=== PATIENT | male | born 1945 | race Caucasian/White ===

== ENCOUNTER 2018-02-25 11:18 | Inpatient (IN) ==
[2018-02-25 12:17] LABS: Basophils # 0.1 10*3/uL (0.0-0.2); Basophils % 0.6 % (0.0-0.8); Eosinophils # 0.3 10*3/uL (0.0-0.87); Eosinophils % 3.4 % (0.00-10.9); Hematocrit 38.1 VOL% (42.0-52.0); Hemoglobin 12.1 GM/DL (14.0-18.0); Immature Granulocytes % 0.5 %; Immature Granulocytes Absolute 0.05 #; Lymphocytes # 2.2 10*3/uL (1.4-4.0); Lymphocytes % 22.9 % (21.2-54.2); Mean Corpuscular HGB Conc 31.8 GM/DL (32-36); Mean Corpuscular Hemoglobin 30 PG (27-34); Mean Corpuscular Volume 95.7 FL (87-102); Mean Platelet Volume 9.8 FL (9.6-12.0); Monocytes # 1.1 10*3/uL (0.11-0.8); Monocytes % 11.1 % (1.7-12.7); Neutrophils # 5.9 10*3/uL (1.4-7.4); Neutrophils % 61.5 % (38.7-73.9); Platelet Count 312 T/CUMM (130-400); Red Blood Count 3.98 MC/CUMM (3.8-5.5); Red Cell Distribution Width 15.9 % (9.3-17.3); White Blood Count 9.6 T/CUMM (4-12)
[2018-02-25 12:36] LABS: Calcium 8.6 MG/DL (8.5-10.1); Potassium 3.8 MMOL/L (3.5-5.1)
[2018-02-25] MEDS ORDERED: MIDAZOLAM 2 MG/2 ML VIAL IV ONE (15:11)
[2018-02-25] MEDS ORDERED: ONDANSETRON 4 MG/2 ML VIAL IV ONE (15:11)
[2018-02-25] MEDS ORDERED: HEPARIN 5,000 UNIT/1 ML VIAL IV ONE (15:11)
[2018-02-25] MEDS ORDERED: fentaNYL 100 MCG/2 ML VIAL IV ONE (15:11)
[2018-02-25] MEDS ORDERED: ceFAZolin 1,000 MG in SYRINGE 1 EACH IV ONE (15:11)
[2018-02-25] MEDS ORDERED: DIAZEPAM 5 MG TABLET PO ONE (15:11)
[2018-02-25] MEDS ORDERED: SODIUM CHLORIDE 0.45% 1,000 ML IV SCH (15:30)
[2018-02-25] MEDS ORDERED: PROMETHAZINE 25 MG TABLET PO PRN (15:39)
[2018-02-25] MEDS ORDERED: DOCUSATE SODIUM 100 MG CAPSULE PO PRN (15:39)
[2018-02-25] MEDS ORDERED: MAGNESIUM SULF RIDER 4 GM in PREMIX 1 EACH IV PRN (15:39)
[2018-02-25] MEDS ORDERED: MAGNESIUM SULF RIDER 2 GM in PREMIX 1 EACH IV PRN (15:39)
[2018-02-25] MEDS ORDERED: ONDANSETRON 4 MG/2 ML VIAL IV PRN (15:39)
[2018-02-25] MEDS ORDERED: diphenhydrAMINE CAP 25 MG CAPSULE PO PRN (15:39)
[2018-02-25] MEDS ORDERED: ACETAMINOPHEN 325 MG TABLET PO PRN (15:39)
[2018-02-25] MEDS ORDERED: LACTULOSE 20 GM/30 ML UDCUP PO PRN (15:39)
[2018-02-25] MEDS ORDERED: BISACODYL 5 MG TABLET PO PRN (15:39)
[2018-02-25] MEDS ORDERED: guaiFENesin/DM ER 600-30 MG TABLET PO PRN (15:39)
[2018-02-25] MEDS ORDERED: HEPARIN 5,000 UNIT/1 ML VIAL ONE (15:46)
[2018-02-25] MEDS ORDERED: fentaNYL 100 MCG/2 ML VIAL ONE (15:46)
[2018-02-25] MEDS ORDERED: MIDAZOLAM 2 MG/2 ML VIAL ONE (15:46)
[2018-02-25] MEDS ORDERED: HEPARIN DRIP 25,000 UNITS/500 ML PREMIX IV SCH ×2 (16:00→17:30)
[2018-02-25] MEDS ORDERED: ALTEPLASE 12 MG in SODIUM CHLORIDE 0.9% 240 ML IV SCH (16:00)
[2018-02-25] MEDS: INSULIN REGULAR 100 UNIT/ML SUBCUT SCH ×2 (17:42→20:27)
[2018-02-25] MEDS: INSULIN GLARGINE 100 UNIT/ML SUBCUT SCH (17:43)
[2018-02-25] MEDS: SODIUM CHLORIDE 0.9% 1,000 ML IV SCH (18:53)
[2018-02-25 19:59] LABS: INR 1.1; PT Patient Result 11.5 SECS; Partial Thromboplastin Time 37.3 SECS (0-40)
[2018-02-25 20:14] LABS: Apearance,Urine CLEAR (Clear); Bacteria,Urine Occasional /HPF (Few); Bilirubin,Urine Negative (Negative); Blood, Urine Negative (Negative); Glucose,Urine (UA) Negative (Negative); Hyaline Casts,Urine 35 /LPF (0-3); Ketones,Urine Negative (Negative); Nitrite,Urine Negative (Negative); Protein,Urine Negative; RBC,Urine <1 /HPF (0-4); Urine Color Yellow (Yellow); Urine Specific Gravity 1.012 (1.001-1.035); Urine Urobilinogen < 2.0 EU/DL (0.2-1.0); WBC,Urine 1 /HPF (0-6)
[2018-02-25] MEDS: CARVEDILOL 3.125 MG TABLET PO SCH (20:26)
[2018-02-25] MEDS: ATORVASTATIN 40 MG TABLET PO SCH (20:26)
[2018-02-25] MEDS: GABAPENTIN 100 MG CAPSULE PO SCH (20:26)
[2018-02-25] MEDS: DOCUSATE/SENNA 50-8.6 MG TABLET PO SCH (20:26)
[2018-02-25] MEDS: SODIUM CHLORIDE/POTASSIUM CHLORIDE TABLET PO SCH (20:26)
[2018-02-25] MEDS: FAMOTIDINE 20 MG TABLET PO SCH (20:27)
[2018-02-26 04:32] LABS: Basophils # 0.1 10*3/uL (0.0-0.2); Basophils % 0.6 % (0.0-0.8); Eosinophils # 0.4 10*3/uL (0.0-0.87); Eosinophils % 3.6 % (0.00-10.9); Hematocrit 39.8 VOL% (42.0-52.0); Hemoglobin 12.3 GM/DL (14.0-18.0); Immature Granulocytes % 0.3 %; Immature Granulocytes Absolute 0.03 #; Lymphocytes % 20.9 % (21.2-54.2); Mean Corpuscular HGB Conc 30.9 GM/DL (32-36); Mean Corpuscular Hemoglobin 30 PG (27-34); Mean Corpuscular Volume 95.4 FL (87-102); Mean Platelet Volume 10.1 FL (9.6-12.0); Monocytes # 1.1 10*3/uL (0.11-0.8); Monocytes % 11.1 % (1.7-12.7); Neutrophils # 6.1 10*3/uL (1.4-7.4); Neutrophils % 63.5 % (38.7-73.9); Platelet Count 311 T/CUMM (130-400); Red Blood Count 4.17 MC/CUMM (3.8-5.5); White Blood Count 9.6 T/CUMM (4-12)
[2018-02-26 05:01] LABS: Calcium 8.4 MG/DL (8.5-10.1); Osmolality,Calculated 284.1 MOS/KG (273-304); Potassium 3.5 MMOL/L (3.5-5.1)
[2018-02-26] MEDS: POTASSIUM CHLORIDE 20 MEQ TABLET PO PRN ×2 (05:34→08:21)
[2018-02-26] MEDS: LEVOTHYROXINE 175 MCG TABLET PO SCH (05:34)
[2018-02-26] MEDS ORDERED: ISOSORBIDE MONONITRATE 30 MG TABLET PO SCH (08:00)
[2018-02-26] MEDS: sitaGLIPtin 100 MG TABLET PO SCH (08:07)
[2018-02-26] MEDS: INSULIN REGULAR 100 UNIT/ML SUBCUT SCH ×4 (08:07→20:17)
[2018-02-26] MEDS: SODIUM CHLORIDE 0.9% 1,000 ML IV SCH ×2 (08:08→22:21)
[2018-02-26] MEDS: CARVEDILOL 3.125 MG TABLET PO SCH ×2 (08:19→18:10)
[2018-02-26] MEDS: ASPIRIN EC 81 MG TABLET PO SCH (08:19)
[2018-02-26] MEDS: TAMSULOSIN 0.4 MG CAPSULE PO SCH (08:19)
[2018-02-26] MEDS: ASCORBIC ACID 500 MG TABLET PO SCH (08:20)
[2018-02-26] MEDS: DOCUSATE/SENNA 50-8.6 MG TABLET PO SCH ×2 (08:20→20:16)
[2018-02-26] MEDS: SODIUM CHLORIDE/POTASSIUM CHLORIDE TABLET PO SCH ×2 (08:20→20:16)
[2018-02-26] MEDS: FAMOTIDINE 20 MG TABLET PO SCH ×2 (08:20→20:16)
[2018-02-26] MEDS: GABAPENTIN 100 MG CAPSULE PO SCH ×2 (08:20→20:17)
[2018-02-26] MEDS: CLOPIDOGREL 75 MG TABLET PO SCH (08:20)
[2018-02-26] MEDS: PANTOPRAZOLE 40 MG TABLET PO SCH (08:20)
[2018-02-26] MEDS ORDERED: ALTEPLASE 6 MG in SODIUM CHLORIDE 0.9% 120 ML IV SCH (08:30)
[2018-02-26] MEDS ORDERED: SKIN HEALING OINT (AQUAPHOR) 50 GM TUBE TOP PRN (10:27)
[2018-02-26] MEDS ORDERED: DEXTROSE 50% 25 GM/50 ML VIAL IV PRN (13:48)
[2018-02-26] MEDS: HEPARIN DRIP 25,000 UNITS/500 ML PREMIX IV SCH (14:39)
[2018-02-26] MEDS: ATORVASTATIN 40 MG TABLET PO SCH (20:16)
[2018-02-26] MEDS: ZALEPLON 5 MG CAPSULE PO PRN (20:16)
[2018-02-26] MEDS: INSULIN GLARGINE 100 UNIT/ML SUBCUT SCH (20:17)
[2018-02-27] MEDS: LEVOTHYROXINE 175 MCG TABLET PO SCH (06:09)
[2018-02-27] MEDS: INSULIN REGULAR 100 UNIT/ML SUBCUT SCH ×4 (07:52→21:05)
[2018-02-27] MEDS: POLYETHYLENE GLYCOL POWDER 17 GM PACK PO SCH (08:35)
[2018-02-27] MEDS: ASPIRIN EC 81 MG TABLET PO SCH (08:35)
[2018-02-27] MEDS: CARVEDILOL 3.125 MG TABLET PO SCH ×2 (08:35→17:08)
[2018-02-27] MEDS: sitaGLIPtin 100 MG TABLET PO SCH (08:35)
[2018-02-27] MEDS: TAMSULOSIN 0.4 MG CAPSULE PO SCH (08:35)
[2018-02-27] MEDS: CLOPIDOGREL 75 MG TABLET PO SCH (08:36)
[2018-02-27] MEDS: PANTOPRAZOLE 40 MG TABLET PO SCH (08:36)
[2018-02-27] MEDS: ASCORBIC ACID 500 MG TABLET PO SCH (08:36)
[2018-02-27] MEDS: SODIUM CHLORIDE/POTASSIUM CHLORIDE TABLET PO SCH ×2 (08:36→21:06)
[2018-02-27] MEDS: DOCUSATE/SENNA 50-8.6 MG TABLET PO SCH ×2 (08:36→21:06)
[2018-02-27] MEDS: GABAPENTIN 100 MG CAPSULE PO SCH ×2 (08:36→21:06)
[2018-02-27] MEDS: FAMOTIDINE 20 MG TABLET PO SCH ×2 (08:36→21:06)
[2018-02-27 08:59] LABS: Basophils # 0.1 10*3/uL (0.0-0.2); Basophils % 0.6 % (0.0-0.8); Eosinophils # 0.2 10*3/uL (0.0-0.87); Eosinophils % 1.7 % (0.00-10.9); Hematocrit 40.9 VOL% (42.0-52.0); Hemoglobin 12.7 GM/DL (14.0-18.0); Immature Granulocytes % 0.4 %; Immature Granulocytes Absolute 0.04 #; Lymphocytes # 2.2 10*3/uL (1.4-4.0); Lymphocytes % 20.9 % (21.2-54.2); Mean Corpuscular HGB Conc 31.1 GM/DL (32-36); Mean Corpuscular Hemoglobin 30 PG (27-34); Mean Corpuscular Volume 97.4 FL (87-102); Mean Platelet Volume 9.8 FL (9.6-12.0); Monocytes # 1.1 10*3/uL (0.11-0.8); Monocytes % 10.8 % (1.7-12.7); Neutrophils # 6.8 10*3/uL (1.4-7.4); Neutrophils % 65.6 % (38.7-73.9); Platelet Count 309 T/CUMM (130-400); White Blood Count 10.3 T/CUMM (4-12)
[2018-02-27] MEDS: SODIUM CHLORIDE 0.9% 1,000 ML IV SCH (12:37)
[2018-02-27] MEDS: HEPARIN DRIP 25,000 UNITS/500 ML PREMIX IV SCH (14:39)
[2018-02-27] MEDS: ATORVASTATIN 40 MG TABLET PO SCH (21:06)
[2018-02-27] MEDS: INSULIN GLARGINE 100 UNIT/ML SUBCUT SCH (21:06)
[2018-02-28] MEDS: SODIUM CHLORIDE 0.9% 1,000 ML IV SCH (00:49)
[2018-02-28] MEDS: ZALEPLON 5 MG CAPSULE PO PRN (00:50)
[2018-02-28 02:56] LABS: Basophils # 0.1 10*3/uL (0.0-0.2); Basophils % 0.7 % (0.0-0.8); Eosinophils # 0.2 10*3/uL (0.0-0.87); Eosinophils % 1.3 % (0.00-10.9); Hematocrit 36.8 VOL% (42.0-52.0); Hemoglobin 11.8 GM/DL (14.0-18.0); Immature Granulocytes % 0.4 %; Immature Granulocytes Absolute 0.05 #; Lymphocytes # 2.6 10*3/uL (1.4-4.0); Lymphocytes % 21.4 % (21.2-54.2); Mean Corpuscular HGB Conc 32.1 GM/DL (32-36); Mean Corpuscular Hemoglobin 31 PG (27-34); Mean Corpuscular Volume 95.3 FL (87-102); Mean Platelet Volume 9.9 FL (9.6-12.0); Monocytes # 1.2 10*3/uL (0.11-0.8); Monocytes % 10.1 % (1.7-12.7); Neutrophils # 8.1 10*3/uL (1.4-7.4); Neutrophils % 66.1 % (38.7-73.9); Platelet Count 278 T/CUMM (130-400); Red Blood Count 3.86 MC/CUMM (3.8-5.5); White Blood Count 12.2 T/CUMM (4-12)
[2018-02-28 03:13] LABS: Calcium 8.3 MG/DL (8.5-10.1); Osmolality,Calculated 277.1 MOS/KG (273-304); Potassium 4.1 MMOL/L (3.5-5.1)
[2018-02-28] MEDS: LEVOTHYROXINE 175 MCG TABLET PO SCH (06:22)
[2018-02-28] MEDS: ASPIRIN EC 81 MG TABLET PO SCH (08:29)
[2018-02-28] MEDS: CARVEDILOL 3.125 MG TABLET PO SCH ×2 (08:29→16:57)
[2018-02-28] MEDS: sitaGLIPtin 100 MG TABLET PO SCH (08:29)
[2018-02-28] MEDS: TAMSULOSIN 0.4 MG CAPSULE PO SCH (08:29)
[2018-02-28] MEDS: FUROSEMIDE 40 MG TABLET PO SCH ×2 (08:30→16:57)
[2018-02-28] MEDS: CLOPIDOGREL 75 MG TABLET PO SCH (08:30)
[2018-02-28] MEDS: PANTOPRAZOLE 40 MG TABLET PO SCH (08:30)
[2018-02-28] MEDS: FAMOTIDINE 20 MG TABLET PO SCH ×2 (08:30→22:01)
[2018-02-28] MEDS: GABAPENTIN 100 MG CAPSULE PO SCH ×2 (08:30→22:02)
[2018-02-28] MEDS: DOCUSATE/SENNA 50-8.6 MG TABLET PO SCH ×2 (08:31→22:11)
[2018-02-28] MEDS: ASCORBIC ACID 500 MG TABLET PO SCH (08:31)
[2018-02-28] MEDS: INSULIN REGULAR 100 UNIT/ML SUBCUT SCH ×4 (10:24→22:02)
[2018-02-28] MEDS ORDERED: ASPIRIN CHEW 81 MG TABLET PO ONE (16:27)
[2018-02-28] MEDS: ATORVASTATIN 40 MG TABLET PO SCH (22:02)
[2018-02-28] MEDS: INSULIN GLARGINE 100 UNIT/ML SUBCUT SCH (22:03)
[2018-03-01 04:47] LABS: Basophils # 0.1 10*3/uL (0.0-0.2); Basophils % 0.7 % (0.0-0.8); Eosinophils # 0.3 10*3/uL (0.0-0.87); Eosinophils % 2.4 % (0.00-10.9); Hematocrit 37.7 VOL% (42.0-52.0); Hemoglobin 11.9 GM/DL (14.0-18.0); Immature Granulocytes % 0.5 %; Immature Granulocytes Absolute 0.06 #; Lymphocytes # 2.6 10*3/uL (1.4-4.0); Lymphocytes % 21.8 % (21.2-54.2); Mean Corpuscular HGB Conc 31.6 GM/DL (32-36); Mean Corpuscular Hemoglobin 30 PG (27-34); Mean Corpuscular Volume 94.7 FL (87-102); Mean Platelet Volume 10.2 FL (9.6-12.0); Monocytes # 0.8 10*3/uL (0.11-0.8); Monocytes % 6.8 % (1.7-12.7); Neutrophils # 8.1 10*3/uL (1.4-7.4); Neutrophils % 67.8 % (38.7-73.9); Platelet Count 324 T/CUMM (130-400); Red Blood Count 3.98 MC/CUMM (3.8-5.5); Red Cell Distribution Width 15.9 % (9.3-17.3); White Blood Count 11.9 T/CUMM (4-12)
[2018-03-01 04:50] LABS: Calcium 9.1 MG/DL (8.5-10.1); Osmolality,Calculated 279.7 MOS/KG (273-304); Potassium 3.8 MMOL/L (3.5-5.1)
[2018-03-01] MEDS: LEVOTHYROXINE 175 MCG TABLET PO SCH (06:16)
[2018-03-01] MEDS: FUROSEMIDE 40 MG TABLET PO SCH ×2 (09:18→17:32)
[2018-03-01] MEDS: CLOPIDOGREL 75 MG TABLET PO SCH (09:18)
[2018-03-01] MEDS: PANTOPRAZOLE 40 MG TABLET PO SCH (09:18)
[2018-03-01] MEDS: FAMOTIDINE 20 MG TABLET PO SCH ×2 (09:18→20:29)
[2018-03-01] MEDS: INSULIN REGULAR 100 UNIT/ML SUBCUT SCH ×4 (09:18→20:29)
[2018-03-01] MEDS: ASPIRIN EC 81 MG TABLET PO SCH (09:19)
[2018-03-01] MEDS: GABAPENTIN 100 MG CAPSULE PO SCH ×2 (09:19→20:29)
[2018-03-01] MEDS: DOCUSATE/SENNA 50-8.6 MG TABLET PO SCH ×2 (09:19→20:29)
[2018-03-01] MEDS: CARVEDILOL 3.125 MG TABLET PO SCH ×2 (09:19→17:32)
[2018-03-01] MEDS: ASCORBIC ACID 500 MG TABLET PO SCH (09:19)
[2018-03-01] MEDS: TAMSULOSIN 0.4 MG CAPSULE PO SCH (09:19)
[2018-03-01] MEDS: POLYETHYLENE GLYCOL POWDER 17 GM PACK PO SCH (09:20)
[2018-03-01] MEDS: APIXABAN 5 MG TABLET PO SCH ×2 (09:22→20:29)
[2018-03-01] MEDS: sitaGLIPtin 100 MG TABLET PO SCH (09:22)
[2018-03-01] MEDS ORDERED: LORazepam 2 MG/1 ML VIAL IV PRN (20:23)
[2018-03-01] MEDS: ATORVASTATIN 40 MG TABLET PO SCH (20:29)
[2018-03-01] MEDS: INSULIN GLARGINE 100 UNIT/ML SUBCUT SCH (20:29)
[2018-03-02 05:25] LABS: Basophils # 0.1 10*3/uL (0.0-0.2); Basophils % 0.6 % (0.0-0.8); Eosinophils # 0.3 10*3/uL (0.0-0.87); Eosinophils % 2.6 % (0.00-10.9); Hematocrit 37.2 VOL% (42.0-52.0); Hemoglobin 11.9 GM/DL (14.0-18.0); Immature Granulocytes % 0.6 %; Immature Granulocytes Absolute 0.07 #; Mean Corpuscular Hemoglobin 30 PG (27-34); Mean Corpuscular Volume 94.2 FL (87-102); Mean Platelet Volume 10.3 FL (9.6-12.0); Monocytes # 1.2 10*3/uL (0.11-0.8); Monocytes % 9.6 % (1.7-12.7); Neutrophils # 8.7 10*3/uL (1.4-7.4); Neutrophils % 70.6 % (38.7-73.9); Platelet Count 334 T/CUMM (130-400); Red Blood Count 3.95 MC/CUMM (3.8-5.5); Red Cell Distribution Width 15.9 % (9.3-17.3); White Blood Count 12.4 T/CUMM (4-12)
[2018-03-02] MEDS: LEVOTHYROXINE 175 MCG TABLET PO SCH (05:32)
[2018-03-02 06:03] LABS: Calcium 9.1 MG/DL (8.5-10.1); Osmolality,Calculated 275.8 MOS/KG (273-304); Potassium 3.6 MMOL/L (3.5-5.1)
[2018-03-02] MEDS: TAMSULOSIN 0.4 MG CAPSULE PO SCH (09:21)
[2018-03-02] MEDS: DOCUSATE/SENNA 50-8.6 MG TABLET PO SCH ×2 (09:21→22:20)
[2018-03-02] MEDS: FAMOTIDINE 20 MG TABLET PO SCH ×2 (09:21→22:20)
[2018-03-02] MEDS: sitaGLIPtin 100 MG TABLET PO SCH (09:21)
[2018-03-02] MEDS: FUROSEMIDE 40 MG TABLET PO SCH ×2 (09:22→16:43)
[2018-03-02] MEDS: CARVEDILOL 3.125 MG TABLET PO SCH ×2 (09:22→16:43)
[2018-03-02] MEDS: CLOPIDOGREL 75 MG TABLET PO SCH (09:22)
[2018-03-02] MEDS: PANTOPRAZOLE 40 MG TABLET PO SCH (09:22)
[2018-03-02] MEDS: ASCORBIC ACID 500 MG TABLET PO SCH (09:22)
[2018-03-02] MEDS: GABAPENTIN 100 MG CAPSULE PO SCH ×2 (09:22→22:20)
[2018-03-02] MEDS: ASPIRIN EC 81 MG TABLET PO SCH (09:22)
[2018-03-02] MEDS: APIXABAN 5 MG TABLET PO SCH ×2 (09:22→22:20)
[2018-03-02] MEDS: INSULIN REGULAR 100 UNIT/ML SUBCUT SCH ×4 (09:23→22:20)
[2018-03-02] MEDS: ATORVASTATIN 40 MG TABLET PO SCH (22:20)
[2018-03-02] MEDS: INSULIN GLARGINE 100 UNIT/ML SUBCUT SCH (22:21)
[2018-03-03 04:45] LABS: Basophils # 0.1 10*3/uL (0.0-0.2); Basophils % 0.6 % (0.0-0.8); Eosinophils # 0.4 10*3/uL (0.0-0.87); Eosinophils % 3.1 % (0.00-10.9); Hemoglobin 11.9 GM/DL (14.0-18.0); Immature Granulocytes % 0.6 %; Immature Granulocytes Absolute 0.07 #; Lymphocytes # 1.8 10*3/uL (1.4-4.0); Lymphocytes % 15.9 % (21.2-54.2); Mean Corpuscular HGB Conc 32.2 GM/DL (32-36); Mean Corpuscular Hemoglobin 30 PG (27-34); Mean Corpuscular Volume 93.9 FL (87-102); Mean Platelet Volume 10.2 FL (9.6-12.0); Monocytes # 1.1 10*3/uL (0.11-0.8); Monocytes % 9.9 % (1.7-12.7); Neutrophils # 7.9 10*3/uL (1.4-7.4); Neutrophils % 69.9 % (38.7-73.9); Platelet Count 327 T/CUMM (130-400); Red Blood Count 3.94 MC/CUMM (3.8-5.5); Red Cell Distribution Width 15.6 % (9.3-17.3); White Blood Count 11.2 T/CUMM (4-12)
[2018-03-03] MEDS: LEVOTHYROXINE 175 MCG TABLET PO SCH (05:48)
[2018-03-03] MEDS: ASPIRIN EC 81 MG TABLET PO SCH (08:09)
[2018-03-03] MEDS: ASCORBIC ACID 500 MG TABLET PO SCH (08:09)
[2018-03-03] MEDS: CLOPIDOGREL 75 MG TABLET PO SCH (08:09)
[2018-03-03] MEDS: FUROSEMIDE 40 MG TABLET PO SCH ×2 (08:09→16:18)
[2018-03-03] MEDS: GABAPENTIN 100 MG CAPSULE PO SCH ×2 (08:09→20:22)
[2018-03-03] MEDS: sitaGLIPtin 100 MG TABLET PO SCH (08:09)
[2018-03-03] MEDS: PANTOPRAZOLE 40 MG TABLET PO SCH (08:10)
[2018-03-03] MEDS: DOCUSATE/SENNA 50-8.6 MG TABLET PO SCH ×2 (08:10→20:21)
[2018-03-03] MEDS: APIXABAN 5 MG TABLET PO SCH ×2 (08:10→20:21)
[2018-03-03] MEDS: TAMSULOSIN 0.4 MG CAPSULE PO SCH (08:10)
[2018-03-03] MEDS: CARVEDILOL 3.125 MG TABLET PO SCH ×2 (08:10→16:18)
[2018-03-03] MEDS: INSULIN REGULAR 100 UNIT/ML SUBCUT SCH ×4 (08:11→20:22)
[2018-03-03] MEDS: FAMOTIDINE 20 MG TABLET PO SCH ×2 (08:11→20:21)
[2018-03-03] MEDS: ATORVASTATIN 40 MG TABLET PO SCH (20:22)
[2018-03-03] MEDS: INSULIN GLARGINE 100 UNIT/ML SUBCUT SCH (20:22)
[2018-03-04 04:47] LABS: Basophils # 0.1 10*3/uL (0.0-0.2); Basophils % 0.5 % (0.0-0.8); Eosinophils # 0.4 10*3/uL (0.0-0.87); Eosinophils % 3.9 % (0.00-10.9); Hemoglobin 11.9 GM/DL (14.0-18.0); Immature Granulocytes % 0.5 %; Immature Granulocytes Absolute 0.05 #; Lymphocytes # 1.8 10*3/uL (1.4-4.0); Lymphocytes % 16.2 % (21.2-54.2); Mean Corpuscular HGB Conc 32.2 GM/DL (32-36); Mean Corpuscular Hemoglobin 30 PG (27-34); Mean Corpuscular Volume 93.4 FL (87-102); Mean Platelet Volume 10.1 FL (9.6-12.0); Monocytes # 1.2 10*3/uL (0.11-0.8); Monocytes % 10.7 % (1.7-12.7); Neutrophils # 7.5 10*3/uL (1.4-7.4); Neutrophils % 68.2 % (38.7-73.9); Platelet Count 332 T/CUMM (130-400); Red Blood Count 3.96 MC/CUMM (3.8-5.5); Red Cell Distribution Width 15.8 % (9.3-17.3)
[2018-03-04 05:22] LABS: Calcium 8.3 MG/DL (8.5-10.1); Potassium 3.4 MMOL/L (3.5-5.1)
[2018-03-04] MEDS: LEVOTHYROXINE 175 MCG TABLET PO SCH (05:44)
[2018-03-04] MEDS: CLOPIDOGREL 75 MG TABLET PO SCH (09:55)
[2018-03-04] MEDS: POTASSIUM CHLORIDE 20 MEQ TABLET PO SCH (09:55)
[2018-03-04] MEDS: ASCORBIC ACID 500 MG TABLET PO SCH (09:56)
[2018-03-04] MEDS: APIXABAN 5 MG TABLET PO SCH ×2 (09:56→20:57)
[2018-03-04] MEDS: FAMOTIDINE 20 MG TABLET PO SCH ×2 (09:56→20:57)
[2018-03-04] MEDS: ASPIRIN EC 81 MG TABLET PO SCH (09:56)
[2018-03-04] MEDS: GABAPENTIN 100 MG CAPSULE PO SCH ×2 (09:56→20:57)
[2018-03-04] MEDS: TAMSULOSIN 0.4 MG CAPSULE PO SCH (09:56)
[2018-03-04] MEDS: PANTOPRAZOLE 40 MG TABLET PO SCH (09:56)
[2018-03-04] MEDS: sitaGLIPtin 100 MG TABLET PO SCH (09:56)
[2018-03-04] MEDS: DOCUSATE/SENNA 50-8.6 MG TABLET PO SCH ×2 (09:57→20:57)
[2018-03-04] MEDS: CARVEDILOL 3.125 MG TABLET PO SCH ×2 (09:57→16:35)
[2018-03-04] MEDS: FUROSEMIDE 40 MG TABLET PO SCH ×2 (09:57→16:35)
[2018-03-04] MEDS: POLYETHYLENE GLYCOL POWDER 17 GM PACK PO SCH (09:58)
[2018-03-04] MEDS: INSULIN REGULAR 100 UNIT/ML SUBCUT SCH ×4 (09:58→20:58)
[2018-03-04] MEDS ORDERED: MAGNESIUM HYDROXIDE SUSP 30 ML UDCUP PO PRN (17:24)
[2018-03-04] MEDS ORDERED: MORPHINE 4 MG/1 ML VIAL IV PRN (19:01)
[2018-03-04] MEDS: ATORVASTATIN 40 MG TABLET PO SCH (20:57)
[2018-03-04] MEDS: INSULIN GLARGINE 100 UNIT/ML SUBCUT SCH (20:58)
[2018-03-05 05:49] LABS: Basophils % 0.3 % (0.0-0.8); Eosinophils # 0.1 10*3/uL (0.0-0.87); Immature Granulocytes % 0.8 %; Immature Granulocytes Absolute 0.09 #; Lymphocytes # 1.9 10*3/uL (1.4-4.0); Mean Corpuscular HGB Conc 30.8 GM/DL (32-36); Mean Corpuscular Hemoglobin 29 PG (27-34); Mean Corpuscular Volume 94.4 FL (87-102); Mean Platelet Volume 10.7 FL (9.6-12.0); Monocytes # 1.1 10*3/uL (0.11-0.8); Monocytes % 9.5 % (1.7-12.7); NRBC # 0.02 10*3/uL; Neutrophils # 8.4 10*3/uL (1.4-7.4); Neutrophils % 72.4 % (38.7-73.9); Platelet Count 297 T/CUMM (130-400); Red Blood Count 4.13 MC/CUMM (3.8-5.5); White Blood Count 11.6 T/CUMM (4-12)
[2018-03-05 06:12] LABS: Calcium 8.5 MG/DL (8.5-10.1); Osmolality,Calculated 281.4 MOS/KG (273-304); Potassium 4.4 MMOL/L (3.5-5.1)
[2018-03-05] MEDS: LEVOTHYROXINE 175 MCG TABLET PO SCH (06:35)
[2018-03-05] MEDS: FAMOTIDINE 20 MG TABLET PO SCH (10:32)
[2018-03-05] MEDS: FUROSEMIDE 40 MG TABLET PO SCH (10:33)
[2018-03-05] MEDS: CLOPIDOGREL 75 MG TABLET PO SCH (10:33)
[2018-03-05] MEDS: GABAPENTIN 100 MG CAPSULE PO SCH (10:33)
[2018-03-05] MEDS: CARVEDILOL 3.125 MG TABLET PO SCH (10:34)
[2018-03-05] MEDS: sitaGLIPtin 100 MG TABLET PO SCH (10:34)
[2018-03-05] MEDS: APIXABAN 5 MG TABLET PO SCH (10:35)
[2018-03-05] MEDS: DOCUSATE/SENNA 50-8.6 MG TABLET PO SCH (10:35)
[2018-03-05] MEDS: TAMSULOSIN 0.4 MG CAPSULE PO SCH (10:35)
[2018-03-05] MEDS: POTASSIUM CHLORIDE 20 MEQ TABLET PO SCH (10:35)
[2018-03-05] MEDS: PANTOPRAZOLE 40 MG TABLET PO SCH (10:35)
[2018-03-05] MEDS: ASPIRIN EC 81 MG TABLET PO SCH (10:35)
[2018-03-05] MEDS: INSULIN REGULAR 100 UNIT/ML SUBCUT SCH ×2 (10:36→12:39)
[2018-03-05] MEDS: ASCORBIC ACID 500 MG TABLET PO SCH (10:36)
[2018-03-05 12:00] VITALS: BP 105/68
== END 2018-03-05 14:55 | DRG 253 ==
LOC: N.ED 11:18 → N.EDINP 15:09 → N.ICU 17:08 → N.TELES 02-28 09:54
PROVIDERS: ADMIT Nurse Practitioner Gerontology; ATTEND Nurse Practitioner Gerontology
PROC: IRURORE (2018-02-26 12:40)

== ENCOUNTER 2018-03-06 10:19 | Inpatient (IN) ==
[2018-03-06] MEDS ORDERED: NALOXONE 0.4 MG/ML VIAL ONE (11:05)
[2018-03-06] MEDS ORDERED: NALOXONE 0.4 MG/ML VIAL IV STA ×2 (11:08→11:50)
[2018-03-06] MEDS ORDERED: SODIUM CHLORIDE 0.9% 500 ML IV STA (11:11)
[2018-03-06 11:20] LABS: Basophils # 0.1 10*3/uL (0.0-0.2); Basophils % 0.6 % (0.0-0.8); Eosinophils # 0.4 10*3/uL (0.0-0.87); Eosinophils % 3.9 % (0.00-10.9); Hematocrit 37.1 VOL% (42.0-52.0); Hemoglobin 12.1 GM/DL (14.0-18.0); Immature Granulocytes % 0.7 %; Immature Granulocytes Absolute 0.07 #; Lymphocytes # 2.1 10*3/uL (1.4-4.0); Lymphocytes % 21.1 % (21.2-54.2); Mean Corpuscular HGB Conc 32.6 GM/DL (32-36); Mean Corpuscular Hemoglobin 31 PG (27-34); Mean Corpuscular Volume 93.5 FL (87-102); Mean Platelet Volume 10.5 FL (9.6-12.0); Monocytes % 10.6 % (1.7-12.7); Neutrophils # 6.2 10*3/uL (1.4-7.4); Neutrophils % 63.1 % (38.7-73.9); Platelet Count 312 T/CUMM (130-400); Red Blood Count 3.97 MC/CUMM (3.8-5.5); Red Cell Distribution Width 16.3 % (9.3-17.3); White Blood Count 9.8 T/CUMM (4-12)
[2018-03-06 11:27] LABS: Apearance,Urine CLOUDY (Clear); Bacteria,Urine Many /HPF (Few); Bilirubin,Urine Negative (Negative); Blood, Urine Large mg/dL (Negative); Glucose,Urine (UA) Negative (Negative); Hyaline Casts,Urine 4 /LPF (0-3); Ketones,Urine Negative (Negative); Mucus,Urine Occasional /LPF (Occasional); Nitrite,Urine Negative (Negative); Protein,Urine 30 MG/DL; RBC,Urine 428 /HPF (0-4); Urine Color Yellow (Yellow); Urine Specific Gravity 1.013 (1.001-1.035); Urine Urobilinogen < 2.0 EU/DL (0.2-1.0); WBC,Urine 119 /HPF (0-6)
[2018-03-06] MEDS ORDERED: LEVOFLOXACIN INJ 500 MG in PREMIX 1 EACH IV STA (11:47)
[2018-03-06 12:49] LABS: Alanine Aminotransferase 506 U/L (16-61); Albumin 2.3 G/DL (3.4-5.0); Alkaline Phosphatase 206 U/L (45-117); Aspartate Amino Transferase 419 U/L (0-37); Blood Urea Nitrogen 49 MG/DL (7-18); Calcium 8.5 MG/DL (8.5-10.1); Glucose 156 MG/DL (74-106); Osmolality,Calculated 290.7 MOS/KG (273-304); Potassium 3.9 MMOL/L (3.5-5.1); Sodium 138 MMOL/L (136-145); Total Protein 6.4 G/DL (6.4-8.3)
[2018-03-06 12:57] LABS: Lactic Acid 2.2 MMOL/L (0.4-2.0)
[2018-03-06] MEDS ORDERED: ACETAMINOPHEN 325 MG TABLET PO PRN (14:53)
[2018-03-06] MEDS ORDERED: GLUCAGON 1 MG VIAL IM PRN (14:58)
[2018-03-06] MEDS ORDERED: DEXTROSE 50% 25 GM/50 ML VIAL IV PRN (14:58)
[2018-03-06] MEDS ORDERED: SODIUM CHLORIDE 0.9% 1,000 ML IV SCH (15:00)
[2018-03-06] MEDS: INSULIN REGULAR 100 UNIT/ML SUBCUT SCH ×2 (16:51→21:23)
[2018-03-06] MEDS: SODIUM CHLORIDE 0.9% 1,000 ML IV SCH (18:15)
[2018-03-06] MEDS: cefTRIAXone 1,000 MG in SYRINGE 1 EACH IV SCH (18:21)
[2018-03-07 05:49] LABS: Basophils # 0.1 10*3/uL (0.0-0.2); Basophils % 0.4 % (0.0-0.8); Eosinophils # 0.5 10*3/uL (0.0-0.87); Eosinophils % 4.4 % (0.00-10.9); Hematocrit 36.9 VOL% (42.0-52.0); Hemoglobin 11.8 GM/DL (14.0-18.0); Immature Granulocytes % 0.4 %; Immature Granulocytes Absolute 0.05 #; Lymphocytes # 1.9 10*3/uL (1.4-4.0); Mean Corpuscular Hemoglobin 30 PG (27-34); Mean Corpuscular Volume 93.9 FL (87-102); Mean Platelet Volume 10.6 FL (9.6-12.0); Monocytes % 8.8 % (1.7-12.7); NRBC # 0.02 10*3/uL; Neutrophils # 7.7 10*3/uL (1.4-7.4); Platelet Count 291 T/CUMM (130-400); Red Blood Count 3.93 MC/CUMM (3.8-5.5); Red Cell Distribution Width 16.3 % (9.3-17.3); White Blood Count 11.1 T/CUMM (4-12)
[2018-03-07 06:07] LABS: Calcium 8.5 MG/DL (8.5-10.1); Osmolality,Calculated 289.5 MOS/KG (273-304); Potassium 3.7 MMOL/L (3.5-5.1)
[2018-03-07 06:33] LABS: Albumin 2.1 G/DL (3.4-5.0); Bilirubin,Direct 0.17 MG/DL (0.0-0.20); Bilirubin,Indirect 0.6 MG/DL (0.0-1.0); Bilirubin,Total 0.8 MG/DL (0.2-1.0); Total Protein 6.2 G/DL (6.4-8.3)
[2018-03-07] MEDS: PANTOPRAZOLE 40 MG TABLET PO SCH (09:02)
[2018-03-07] MEDS: INSULIN REGULAR 100 UNIT/ML SUBCUT SCH ×4 (09:02→21:05)
[2018-03-07] MEDS ORDERED: SKIN HEALING OINT (AQUAPHOR) 50 GM TUBE TOP PRN (11:47)
[2018-03-07] MEDS ORDERED: VANCOMYCIN INJ 1,750 MG in SODIUM CHLORIDE 0.9% 500 ML IV ONE (13:00)
[2018-03-07] MEDS: SODIUM CHLORIDE 0.9% 1,000 ML IV SCH ×2 (13:47→16:43)
[2018-03-07] MEDS: TAMSULOSIN 0.4 MG CAPSULE PO SCH (13:48)
[2018-03-07] MEDS: CLOPIDOGREL 75 MG TABLET PO SCH (13:48)
[2018-03-07] MEDS: CARVEDILOL 3.125 MG TABLET PO SCH (16:41)
[2018-03-07] MEDS: FUROSEMIDE 40 MG TABLET PO SCH (16:41)
[2018-03-07] MEDS: cefTRIAXone 1,000 MG in SYRINGE 1 EACH IV SCH (16:42)
[2018-03-07] MEDS ORDERED: DOCUSATE/SENNA 50-8.6 MG TABLET PO SCH (21:00)
[2018-03-07] MEDS: GABAPENTIN 100 MG CAPSULE PO SCH (21:04)
[2018-03-07] MEDS: APIXABAN 5 MG TABLET PO SCH (21:04)
[2018-03-07] MEDS: ATORVASTATIN 40 MG TABLET PO SCH (21:04)
[2018-03-07] MEDS: DOCUSATE/SENNA 50-8.6 MG TABLET PO SCH (21:04)
[2018-03-07] MEDS: INSULIN GLARGINE 100 UNIT/ML SUBCUT SCH (21:04)
[2018-03-08] MEDS: VANCOMYCIN INJ 1,250 MG in SODIUM CHLORIDE 0.9% 250 ML IV SCH ×2 (02:34→14:13)
[2018-03-08] MEDS: LEVOTHYROXINE 175 MCG TABLET PO SCH (06:01)
[2018-03-08 06:05] LABS: Basophils # 0.1 10*3/uL (0.0-0.2); Basophils % 0.4 % (0.0-0.8); Eosinophils # 0.4 10*3/uL (0.0-0.87); Eosinophils % 3.8 % (0.00-10.9); Hematocrit 38.5 VOL% (42.0-52.0); Hemoglobin 12.4 GM/DL (14.0-18.0); Immature Granulocytes % 0.8 %; Immature Granulocytes Absolute 0.09 #; Lymphocytes # 2.2 10*3/uL (1.4-4.0); Lymphocytes % 19.5 % (21.2-54.2); Mean Corpuscular HGB Conc 32.2 GM/DL (32-36); Mean Corpuscular Hemoglobin 30 PG (27-34); Mean Corpuscular Volume 94.4 FL (87-102); Mean Platelet Volume 10.5 FL (9.6-12.0); Monocytes # 1.1 10*3/uL (0.11-0.8); NRBC # 0.02 10*3/uL; Neutrophils # 7.4 10*3/uL (1.4-7.4); Neutrophils % 65.5 % (38.7-73.9); Platelet Count 318 T/CUMM (130-400); Red Blood Count 4.08 MC/CUMM (3.8-5.5); Red Cell Distribution Width 16.6 % (9.3-17.3); White Blood Count 11.4 T/CUMM (4-12)
[2018-03-08 06:25] LABS: Albumin 2.2 G/DL (3.4-5.0); Bilirubin,Direct 0.21 MG/DL (0.0-0.20); Bilirubin,Indirect 0.5 MG/DL (0.0-1.0); Bilirubin,Total 0.7 MG/DL (0.2-1.0); Calcium 8.4 MG/DL (8.5-10.1); Osmolality,Calculated 288.3 MOS/KG (273-304); Potassium 3.4 MMOL/L (3.5-5.1); Total Protein 6.7 G/DL (6.4-8.3)
[2018-03-08] MEDS: INSULIN REGULAR 100 UNIT/ML SUBCUT SCH ×4 (08:18→21:55)
[2018-03-08] MEDS ORDERED: metOLazone 2.5 MG TABLET PO SCH (09:00)
[2018-03-08] MEDS ORDERED: LISINOPRIL 2.5 MG TABLET PO SCH (09:00)
[2018-03-08] MEDS: POLYETHYLENE GLYCOL POWDER 17 GM PACK PO SCH (09:44)
[2018-03-08] MEDS: CLOPIDOGREL 75 MG TABLET PO SCH (09:44)
[2018-03-08] MEDS: GABAPENTIN 100 MG CAPSULE PO SCH ×2 (09:44→20:15)
[2018-03-08] MEDS: PANTOPRAZOLE 40 MG TABLET PO SCH (09:44)
[2018-03-08] MEDS: FUROSEMIDE 40 MG TABLET PO SCH ×2 (09:44→16:19)
[2018-03-08] MEDS: ASCORBIC ACID 500 MG TABLET PO SCH (09:44)
[2018-03-08] MEDS: TAMSULOSIN 0.4 MG CAPSULE PO SCH (09:45)
[2018-03-08] MEDS: sitaGLIPtin 100 MG TABLET PO SCH (09:45)
[2018-03-08] MEDS: POTASSIUM CHLORIDE 20 MEQ TABLET PO SCH (09:45)
[2018-03-08] MEDS: ISOSORBIDE MONONITRATE 30 MG TABLET PO SCH (09:45)
[2018-03-08] MEDS: APIXABAN 5 MG TABLET PO SCH ×2 (09:45→20:15)
[2018-03-08] MEDS: DOCUSATE/SENNA 50-8.6 MG TABLET PO SCH ×2 (09:45→20:15)
[2018-03-08] MEDS: CARVEDILOL 3.125 MG TABLET PO SCH ×2 (09:45→16:19)
[2018-03-08] MEDS: ASPIRIN CHEW 81 MG TABLET PO SCH (09:45)
[2018-03-08] MEDS: INSULIN GLARGINE 100 UNIT/ML SUBCUT SCH ×2 (10:37→20:15)
[2018-03-08] MEDS: cefTRIAXone 1,000 MG in SYRINGE 1 EACH IV SCH (10:37)
[2018-03-08] MEDS ORDERED: FUROSEMIDE 20 MG/2 ML VIAL IV ONE (17:57)
[2018-03-08 18:25] LABS: ABG Base Excess -0.3 MMOL/L (-2.5-2.5); ABG HCO3 24.2 MMOL/L (20-26); ABG Oxygen Saturation 99.2 % (95-100); ABG PCO2 32.2 MM HG (35-48); ABG PH 7.458 (7.35-7.45); ABG TCO2 20.1 MMOL/L (23-27); Allen Test Positive
[2018-03-08 18:29] LABS: Basophils # 0.1 10*3/uL (0.0-0.2); Basophils % 0.6 % (0.0-0.8); Eosinophils # 0.5 10*3/uL (0.0-0.87); Eosinophils % 4.4 % (0.00-10.9); Hematocrit 37.7 VOL% (42.0-52.0); Hemoglobin 11.8 GM/DL (14.0-18.0); Immature Granulocytes % 0.7 %; Immature Granulocytes Absolute 0.08 #; Lymphocytes % 18.6 % (21.2-54.2); Mean Corpuscular HGB Conc 31.3 GM/DL (32-36); Mean Corpuscular Hemoglobin 30 PG (27-34); Mean Corpuscular Volume 95.7 FL (87-102); Mean Platelet Volume 10.6 FL (9.6-12.0); Monocytes # 1.1 10*3/uL (0.11-0.8); Neutrophils # 7.1 10*3/uL (1.4-7.4); Neutrophils % 65.7 % (38.7-73.9); Platelet Count 290 T/CUMM (130-400); Red Blood Count 3.94 MC/CUMM (3.8-5.5); Red Cell Distribution Width 16.8 % (9.3-17.3); White Blood Count 10.8 T/CUMM (4-12)
[2018-03-08 18:56] LABS: Calcium 8.1 MG/DL (8.5-10.1); Osmolality,Calculated 288.3 MOS/KG (273-304); Potassium 4.1 MMOL/L (3.5-5.1)
[2018-03-08] MEDS: SODIUM CHLORIDE 0.9% 1,000 ML IV SCH ×2 (18:57→22:01)
[2018-03-08] MEDS: ATORVASTATIN 40 MG TABLET PO SCH (20:15)
[2018-03-08] MEDS ORDERED: AMIODARONE INJ 150 MG in DEXTROSE 5% 100 ML IV ONE (21:21)
[2018-03-08] MEDS ORDERED: AMIODARONE INJ 450 MG in DEXTROSE 5% 241 ML IV SCH (21:30)
[2018-03-08] MEDS: PHENYLEPHRINE DRIP 40 MG/250 ML PREMIX IV PRN (23:53)
[2018-03-09 01:23] LABS: Basophils # 0.1 10*3/uL (0.0-0.2); Basophils % 0.5 % (0.0-0.8); Eosinophils # 0.5 10*3/uL (0.0-0.87); Eosinophils % 5.3 % (0.00-10.9); Hematocrit 40.5 VOL% (42.0-52.0); Hemoglobin 12.3 GM/DL (14.0-18.0); Immature Granulocytes % 0.6 %; Immature Granulocytes Absolute 0.06 #; Lymphocytes % 21.1 % (21.2-54.2); Mean Corpuscular HGB Conc 30.4 GM/DL (32-36); Mean Corpuscular Hemoglobin 29 PG (27-34); Mean Corpuscular Volume 96.7 FL (87-102); Mean Platelet Volume 10.3 FL (9.6-12.0); Neutrophils # 5.9 10*3/uL (1.4-7.4); Neutrophils % 62.5 % (38.7-73.9); Platelet Count 270 T/CUMM (130-400); Red Blood Count 4.19 MC/CUMM (3.8-5.5); White Blood Count 9.5 T/CUMM (4-12)
[2018-03-09 01:45] LABS: Albumin 2.3 G/DL (3.4-5.0); Bilirubin,Direct 0.18 MG/DL (0.0-0.20); Bilirubin,Indirect 0.2 MG/DL (0.0-1.0); Bilirubin,Total 0.4 MG/DL (0.2-1.0); Calcium 8.4 MG/DL (8.5-10.1); Osmolality,Calculated 290.1 MOS/KG (273-304); Potassium 3.8 MMOL/L (3.5-5.1); Total Protein 5.9 G/DL (6.4-8.3)
[2018-03-09] MEDS: VANCOMYCIN INJ 1,250 MG in SODIUM CHLORIDE 0.9% 250 ML IV SCH ×2 (03:33→15:47)
[2018-03-09] MEDS: AMIODARONE INJ 450 MG in DEXTROSE 5% 241 ML IV SCH ×3 (03:55→22:11)
[2018-03-09] MEDS: LEVOTHYROXINE 175 MCG TABLET PO SCH (05:48)
[2018-03-09] MEDS: INSULIN REGULAR 100 UNIT/ML SUBCUT SCH ×4 (07:32→20:10)
[2018-03-09] MEDS: CARVEDILOL 3.125 MG TABLET PO SCH ×2 (07:47→17:23)
[2018-03-09] MEDS: APIXABAN 5 MG TABLET PO SCH ×2 (09:08→20:17)
[2018-03-09] MEDS: FUROSEMIDE 40 MG TABLET PO SCH (09:08)
[2018-03-09] MEDS: POTASSIUM CHLORIDE 20 MEQ TABLET PO SCH (09:09)
[2018-03-09] MEDS: ASPIRIN CHEW 81 MG TABLET PO SCH (09:09)
[2018-03-09] MEDS: GABAPENTIN 100 MG CAPSULE PO SCH ×2 (09:09→20:17)
[2018-03-09] MEDS: DOCUSATE/SENNA 50-8.6 MG TABLET PO SCH ×2 (09:09→20:17)
[2018-03-09] MEDS: ASCORBIC ACID 500 MG TABLET PO SCH (09:09)
[2018-03-09] MEDS: PANTOPRAZOLE 40 MG TABLET PO SCH (09:09)
[2018-03-09] MEDS: TAMSULOSIN 0.4 MG CAPSULE PO SCH (09:09)
[2018-03-09] MEDS: ISOSORBIDE MONONITRATE 30 MG TABLET PO SCH (09:09)
[2018-03-09] MEDS: sitaGLIPtin 100 MG TABLET PO SCH (09:09)
[2018-03-09] MEDS: CLOPIDOGREL 75 MG TABLET PO SCH (09:22)
[2018-03-09] MEDS: cefTRIAXone 1,000 MG in SYRINGE 1 EACH IV SCH (09:26)
[2018-03-09] MEDS: INSULIN GLARGINE 100 UNIT/ML SUBCUT SCH (09:34)
[2018-03-09] MEDS: PHENYLEPHRINE DRIP 40 MG/250 ML PREMIX IV PRN ×3 (09:44→23:12)
[2018-03-09 11:45] LABS: Hepatitis A Ab IgM Quant 0.11 Index; Hepatitis A Ab IgM Result Negative (Negative); Hepatitis B Core IgM Quant < 0.05 Index; Hepatitis B Core IgM Result Negative (Negative); Hepatitis B Surface Ag Quant < 0.10 Index; Hepatitis B Surface Ag Result Negative (Negative); Hepatitis C Virus Ab Quant 0.07 Index; Hepatitis C Virus Ab Result Negative (Negative)
[2018-03-09] MEDS: INSULIN NPH 100 UNIT/ML SUBCUT SCH (12:30)
[2018-03-09] MEDS: ATORVASTATIN 40 MG TABLET PO SCH (20:17)
[2018-03-09] MEDS: ONDANSETRON 4 MG/2 ML VIAL IV PRN (22:10)
[2018-03-09] MEDS: SODIUM CHLORIDE 0.9% 1,000 ML IV SCH (22:11)
[2018-03-09] MEDS ORDERED: NOREPINEPHRINE 4 MG/4 ML VIAL IV ONE (23:46)
[2018-03-09] MEDS: NOREPINEPHRINE 8 MG in SODIUM CHLORIDE 0.9% 242 ML IV PRN (23:56)
[2018-03-10] MEDS: AMIODARONE INJ 450 MG in DEXTROSE 5% 241 ML IV SCH (01:18)
[2018-03-10] MEDS: INSULIN NPH 100 UNIT/ML SUBCUT SCH ×2 (03:25→17:39)
[2018-03-10 04:07] LABS: Lactic Acid 5.5 MMOL/L (0.4-2.0)
[2018-03-10] MEDS ORDERED: SODIUM CHLORIDE 0.9% 500 ML IV ONE (04:19)
[2018-03-10 04:20] LABS: Basophils # 0.1 10*3/uL (0.0-0.2); Basophils % 0.3 % (0.0-0.8); Eosinophils % 0.1 % (0.00-10.9); Hematocrit 44.1 VOL% (42.0-52.0); Hemoglobin 13.8 GM/DL (14.0-18.0); Immature Granulocytes % 1.3 %; Immature Granulocytes Absolute 0.23 #; Lymphocytes # 1.7 10*3/uL (1.4-4.0); Lymphocytes % 9.9 % (21.2-54.2); Mean Corpuscular HGB Conc 31.3 GM/DL (32-36); Mean Corpuscular Hemoglobin 30 PG (27-34); Mean Corpuscular Volume 94.4 FL (87-102); Monocytes # 1.8 10*3/uL (0.11-0.8); Monocytes % 10.3 % (1.7-12.7); Neutrophils # 13.6 10*3/uL (1.4-7.4); Neutrophils % 78.1 % (38.7-73.9); Platelet Count 178 T/CUMM (130-400); Red Blood Count 4.67 MC/CUMM (3.8-5.5); Red Cell Distribution Width 17.2 % (9.3-17.3); White Blood Count 17.4 T/CUMM (4-12)
[2018-03-10] MEDS ORDERED: SODIUM CHLORIDE 0.9% 2,550 ML IV ONE (04:38)
[2018-03-10 05:38] LABS: Albumin 2.4 G/DL (3.4-5.0); Bilirubin,Total 1.4 MG/DL (0.2-1.0); Calcium 8.2 MG/DL (8.5-10.1); Osmolality,Calculated 281.8 MOS/KG (273-304); Potassium 5.4 MMOL/L (3.5-5.1); Total Protein 6.7 G/DL (6.4-8.3)
[2018-03-10] MEDS: LEVOTHYROXINE 175 MCG TABLET PO SCH (06:06)
[2018-03-10] MEDS: INSULIN REGULAR 100 UNIT/ML SUBCUT SCH ×4 (07:30→23:17)
[2018-03-10] MEDS: CARVEDILOL 3.125 MG TABLET PO SCH ×2 (07:42→17:39)
[2018-03-10] MEDS: ASCORBIC ACID 500 MG TABLET PO SCH (09:41)
[2018-03-10] MEDS: PANTOPRAZOLE 40 MG TABLET PO SCH (09:41)
[2018-03-10] MEDS: APIXABAN 5 MG TABLET PO SCH (09:41)
[2018-03-10] MEDS: ASPIRIN CHEW 81 MG TABLET PO SCH (09:42)
[2018-03-10] MEDS: TAMSULOSIN 0.4 MG CAPSULE PO SCH (09:42)
[2018-03-10] MEDS: MEROPENEM 500 MG in SODIUM CHLORIDE 0.9% 100 ML IV SCH ×2 (09:42→17:43)
[2018-03-10] MEDS: AMIODARONE 200 MG TABLET PO SCH (09:42)
[2018-03-10] MEDS: DOCUSATE/SENNA 50-8.6 MG TABLET PO SCH ×2 (09:42→20:29)
[2018-03-10] MEDS: POTASSIUM CHLORIDE 20 MEQ TABLET PO SCH (09:43)
[2018-03-10] MEDS: CLOPIDOGREL 75 MG TABLET PO SCH (09:43)
[2018-03-10] MEDS: SODIUM CHLORIDE 0.9% 1,000 ML IV SCH (12:10)
[2018-03-10] MEDS: ONDANSETRON 4 MG/2 ML VIAL IV PRN (12:46)
[2018-03-10] MEDS: NOREPINEPHRINE 8 MG in SODIUM CHLORIDE 0.9% 242 ML IV PRN (13:45)
[2018-03-10] MEDS ORDERED: SODIUM BICARB INJ 150 MEQ in STERILE WATER INJ 850 ML IV SCH (17:00)
[2018-03-10] MEDS ORDERED: APIXABAN 2.5 MG TABLET PO SCH (21:00)
[2018-03-11] MEDS: MEROPENEM 500 MG in SODIUM CHLORIDE 0.9% 100 ML IV SCH ×3 (00:22→18:20)
[2018-03-11] MEDS: NOREPINEPHRINE 8 MG in SODIUM CHLORIDE 0.9% 242 ML IV PRN ×3 (02:42→19:50)
[2018-03-11 04:38] LABS: Basophils # 0.1 10*3/uL (0.0-0.2); Basophils % 0.5 % (0.0-0.8); Eosinophils # 0.3 10*3/uL (0.0-0.87); Eosinophils % 1.9 % (0.00-10.9); Hematocrit 36.6 VOL% (42.0-52.0); Hemoglobin 11.6 GM/DL (14.0-18.0); Immature Granulocytes % 1.2 %; Immature Granulocytes Absolute 0.18 #; Lymphocytes # 1.2 10*3/uL (1.4-4.0); Lymphocytes % 8.6 % (21.2-54.2); Mean Corpuscular HGB Conc 31.7 GM/DL (32-36); Mean Corpuscular Hemoglobin 30 PG (27-34); Mean Corpuscular Volume 93.1 FL (87-102); Mean Platelet Volume 11.8 FL (9.6-12.0); Monocytes # 0.9 10*3/uL (0.11-0.8); Monocytes % 6.1 % (1.7-12.7); NRBC # 0.41 10*3/uL; Neutrophils # 11.8 10*3/uL (1.4-7.4); Neutrophils % 81.7 % (38.7-73.9); Platelet Count 138 T/CUMM (130-400); Red Blood Count 3.93 MC/CUMM (3.8-5.5); Red Cell Distribution Width 16.8 % (9.3-17.3); White Blood Count 14.4 T/CUMM (4-12)
[2018-03-11 04:50] LABS: Calcium 7.6 MG/DL (8.5-10.1); Osmolality,Calculated 291.4 MOS/KG (273-304); Potassium 4.1 MMOL/L (3.5-5.1)
[2018-03-11 05:12] LABS: Albumin 2.2 G/DL (3.4-5.0); Bilirubin,Total 1.3 MG/DL (0.2-1.0); Calcium 7.6 MG/DL (8.5-10.1); Osmolality,Calculated 291.4 MOS/KG (273-304); Total Protein 5.6 G/DL (6.4-8.3)
[2018-03-11] MEDS: LEVOTHYROXINE 175 MCG TABLET PO SCH (06:20)
[2018-03-11] MEDS ORDERED: ENOXAPARIN 100 MG/ML SYRINGE SUBCUT SCH (09:00)
[2018-03-11] MEDS: INSULIN REGULAR 100 UNIT/ML SUBCUT SCH ×4 (09:20→20:54)
[2018-03-11] MEDS: INSULIN NPH 100 UNIT/ML SUBCUT SCH ×2 (09:20→18:20)
[2018-03-11] MEDS: TAMSULOSIN 0.4 MG CAPSULE PO SCH (09:21)
[2018-03-11] MEDS: ASPIRIN CHEW 81 MG TABLET PO SCH (09:21)
[2018-03-11] MEDS: DOCUSATE/SENNA 50-8.6 MG TABLET PO SCH ×2 (09:21→20:55)
[2018-03-11] MEDS: CLOPIDOGREL 75 MG TABLET PO SCH (09:21)
[2018-03-11] MEDS: CARVEDILOL 3.125 MG TABLET PO SCH ×2 (09:21→18:20)
[2018-03-11] MEDS: PANTOPRAZOLE 40 MG TABLET PO SCH (09:21)
[2018-03-11] MEDS: AMIODARONE 200 MG TABLET PO SCH (09:21)
[2018-03-11] MEDS: ASCORBIC ACID 500 MG TABLET PO SCH (09:21)
[2018-03-11] MEDS: POLYETHYLENE GLYCOL POWDER 17 GM PACK PO SCH (09:22)
[2018-03-11] MEDS: SODIUM BICARBONATE 650 MG TABLET PO SCH ×2 (15:54→20:55)
[2018-03-12] MEDS: MEROPENEM 500 MG in SODIUM CHLORIDE 0.9% 100 ML IV SCH ×2 (01:39→14:26)
[2018-03-12 03:20] LABS: Basophils % 0.4 % (0.0-0.8); Eosinophils # 0.5 10*3/uL (0.0-0.87); Eosinophils % 4.5 % (0.00-10.9); Hematocrit 36.7 VOL% (42.0-52.0); Hemoglobin 11.5 GM/DL (14.0-18.0); Immature Granulocytes % 1.2 %; Immature Granulocytes Absolute 0.13 #; Lymphocytes # 1.3 10*3/uL (1.4-4.0); Mean Corpuscular HGB Conc 31.3 GM/DL (32-36); Mean Corpuscular Hemoglobin 29 PG (27-34); Mean Corpuscular Volume 93.1 FL (87-102); Monocytes # 0.7 10*3/uL (0.11-0.8); Monocytes % 5.9 % (1.7-12.7); NRBC # 0.21 10*3/uL; Neutrophils # 8.5 10*3/uL (1.4-7.4); Platelet Count 155 T/CUMM (130-400); Red Blood Count 3.94 MC/CUMM (3.8-5.5); White Blood Count 11.1 T/CUMM (4-12)
[2018-03-12 03:42] LABS: Calcium 7.5 MG/DL (8.5-10.1); Osmolality,Calculated 295.1 MOS/KG (273-304); Potassium 3.4 MMOL/L (3.5-5.1)
[2018-03-12] MEDS ORDERED: DEXTROSE 50% 25 GM/50 ML SYRINGE IV ONE (05:42)
[2018-03-12] MEDS ORDERED: DEXTROSE 50% 25 GM/50 ML SYRINGE IV PRN (05:50)
[2018-03-12] MEDS ORDERED: MAGNESIUM SULF RIDER 2 GM in PREMIX 1 EACH IV ONE (06:21)
[2018-03-12] MEDS: LEVOTHYROXINE 175 MCG TABLET PO SCH (06:40)
[2018-03-12] MEDS: INSULIN REGULAR 100 UNIT/ML SUBCUT SCH ×4 (08:40→21:06)
[2018-03-12] MEDS ORDERED: POTASSIUM CHLORIDE 20 MEQ/15 ML UDCUP PO ONE (09:00)
[2018-03-12] MEDS: INSULIN NPH 100 UNIT/ML SUBCUT SCH ×2 (09:31→19:12)
[2018-03-12] MEDS: TAMSULOSIN 0.4 MG CAPSULE PO SCH (09:32)
[2018-03-12] MEDS: CARVEDILOL 3.125 MG TABLET PO SCH ×2 (09:32→18:00)
[2018-03-12] MEDS: ASPIRIN CHEW 81 MG TABLET PO SCH (09:32)
[2018-03-12] MEDS: CLOPIDOGREL 75 MG TABLET PO SCH (09:32)
[2018-03-12] MEDS: APIXABAN 2.5 MG TABLET PO SCH ×2 (09:33→21:05)
[2018-03-12] MEDS: PANTOPRAZOLE 40 MG TABLET PO SCH (09:33)
[2018-03-12] MEDS: AMIODARONE 200 MG TABLET PO SCH (09:33)
[2018-03-12] MEDS: ASCORBIC ACID 500 MG TABLET PO SCH (09:33)
[2018-03-12] MEDS: SODIUM BICARBONATE 650 MG TABLET PO SCH ×3 (09:33→21:06)
[2018-03-12] MEDS: DOCUSATE/SENNA 50-8.6 MG TABLET PO SCH ×2 (09:34→21:06)
[2018-03-12 11:39] LABS: Albumin 1.9 G/DL (3.4-5.0); Bilirubin,Direct 0.57 MG/DL (0.0-0.20); Bilirubin,Indirect 0.4 MG/DL (0.0-1.0)
[2018-03-13] MEDS: MEROPENEM 500 MG in SODIUM CHLORIDE 0.9% 100 ML IV SCH ×2 (01:42→12:55)
[2018-03-13 04:14] LABS: Albumin 1.8 G/DL (3.4-5.0); Bilirubin,Total 1.1 MG/DL (0.2-1.0); Calcium 7.4 MG/DL (8.5-10.1); Osmolality,Calculated 288.8 MOS/KG (273-304); Potassium 3.7 MMOL/L (3.5-5.1)
[2018-03-13 04:24] LABS: Albumin 1.9 G/DL (3.4-5.0); Bilirubin,Direct 0.59 MG/DL (0.0-0.20); Bilirubin,Indirect 0.5 MG/DL (0.0-1.0); Bilirubin,Total 1.1 MG/DL (0.2-1.0); Total Protein 5.1 G/DL (6.4-8.3)
[2018-03-13] MEDS: LEVOTHYROXINE 175 MCG TABLET PO SCH (06:22)
[2018-03-13] MEDS: INSULIN REGULAR 100 UNIT/ML SUBCUT SCH ×4 (07:38→21:29)
[2018-03-13] MEDS: INSULIN NPH 100 UNIT/ML SUBCUT SCH ×2 (08:54→17:51)
[2018-03-13] MEDS: CLOPIDOGREL 75 MG TABLET PO SCH (09:04)
[2018-03-13] MEDS: ASPIRIN CHEW 81 MG TABLET PO SCH (09:04)
[2018-03-13] MEDS: APIXABAN 2.5 MG TABLET PO SCH ×2 (09:04→21:28)
[2018-03-13] MEDS: CARVEDILOL 3.125 MG TABLET PO SCH ×2 (09:04→17:57)
[2018-03-13] MEDS: ASCORBIC ACID 500 MG TABLET PO SCH (09:05)
[2018-03-13] MEDS: SODIUM BICARBONATE 650 MG TABLET PO SCH ×3 (09:05→21:27)
[2018-03-13] MEDS: DOCUSATE/SENNA 50-8.6 MG TABLET PO SCH ×2 (09:05→21:28)
[2018-03-13] MEDS: AMIODARONE 200 MG TABLET PO SCH (09:05)
[2018-03-13] MEDS: POLYETHYLENE GLYCOL POWDER 17 GM PACK PO SCH (09:05)
[2018-03-13] MEDS: TAMSULOSIN 0.4 MG CAPSULE PO SCH (09:05)
[2018-03-13] MEDS: PANTOPRAZOLE 40 MG TABLET PO SCH (09:05)
[2018-03-14] MEDS: MEROPENEM 500 MG in SODIUM CHLORIDE 0.9% 100 ML IV SCH ×2 (01:59→12:52)
[2018-03-14 04:32] LABS: Basophils % 0.4 % (0.0-0.8); Eosinophils # 0.2 10*3/uL (0.0-0.87); Eosinophils % 2.8 % (0.00-10.9); Hematocrit 39.4 VOL% (42.0-52.0); Hemoglobin 12.3 GM/DL (14.0-18.0); Immature Granulocytes % 0.6 %; Immature Granulocytes Absolute 0.05 #; Lymphocytes # 1.4 10*3/uL (1.4-4.0); Lymphocytes % 18.6 % (21.2-54.2); Mean Corpuscular HGB Conc 31.2 GM/DL (32-36); Mean Corpuscular Hemoglobin 29 PG (27-34); Mean Corpuscular Volume 92.7 FL (87-102); Mean Platelet Volume 11.4 FL (9.6-12.0); Monocytes # 0.7 10*3/uL (0.11-0.8); Monocytes % 8.7 % (1.7-12.7); NRBC # 0.04 10*3/uL; Neutrophils # 5.3 10*3/uL (1.4-7.4); Neutrophils % 68.9 % (38.7-73.9); Platelet Count 143 T/CUMM (130-400); Red Blood Count 4.25 MC/CUMM (3.8-5.5); Red Cell Distribution Width 17.3 % (9.3-17.3); White Blood Count 7.7 T/CUMM (4-12)
[2018-03-14 04:54] LABS: Calcium 7.7 MG/DL (8.5-10.1); Osmolality,Calculated 293.7 MOS/KG (273-304)
[2018-03-14] MEDS: LEVOTHYROXINE 175 MCG TABLET PO SCH (06:32)
[2018-03-14] MEDS: TAMSULOSIN 0.4 MG CAPSULE PO SCH (09:10)
[2018-03-14] MEDS: CARVEDILOL 3.125 MG TABLET PO SCH ×2 (09:10→17:24)
[2018-03-14] MEDS: ASCORBIC ACID 500 MG TABLET PO SCH (09:11)
[2018-03-14] MEDS: AMIODARONE 200 MG TABLET PO SCH (09:11)
[2018-03-14] MEDS: APIXABAN 2.5 MG TABLET PO SCH ×2 (09:11→22:23)
[2018-03-14] MEDS: ASPIRIN CHEW 81 MG TABLET PO SCH (09:11)
[2018-03-14] MEDS: CLOPIDOGREL 75 MG TABLET PO SCH (09:11)
[2018-03-14] MEDS: SODIUM BICARBONATE 650 MG TABLET PO SCH ×3 (09:11→22:23)
[2018-03-14] MEDS: PANTOPRAZOLE 40 MG TABLET PO SCH (09:11)
[2018-03-14] MEDS: INSULIN NPH 100 UNIT/ML SUBCUT SCH ×2 (09:12→17:24)
[2018-03-14] MEDS: INSULIN REGULAR 100 UNIT/ML SUBCUT SCH ×4 (09:13→23:01)
[2018-03-14] MEDS: DOCUSATE/SENNA 50-8.6 MG TABLET PO SCH ×2 (09:27→22:23)
[2018-03-15] MEDS: MEROPENEM 500 MG in SODIUM CHLORIDE 0.9% 100 ML IV SCH (01:51)
[2018-03-15] MEDS ORDERED: LORazepam 2 MG/1 ML VIAL IV ONE (02:00)
[2018-03-15 06:22] LABS: Basophils % 0.3 % (0.0-0.8); Eosinophils # 0.1 10*3/uL (0.0-0.87); Eosinophils % 1.8 % (0.00-10.9); Hematocrit 35.2 VOL% (42.0-52.0); Hemoglobin 11.2 GM/DL (14.0-18.0); Immature Granulocytes % 0.5 %; Immature Granulocytes Absolute 0.03 #; Lymphocytes # 1.2 10*3/uL (1.4-4.0); Lymphocytes % 17.3 % (21.2-54.2); Mean Corpuscular HGB Conc 31.8 GM/DL (32-36); Mean Corpuscular Hemoglobin 29 PG (27-34); Mean Corpuscular Volume 92.4 FL (87-102); Mean Platelet Volume 11.5 FL (9.6-12.0); Monocytes # 0.7 10*3/uL (0.11-0.8); Monocytes % 9.8 % (1.7-12.7); NRBC # 0.04 10*3/uL; Neutrophils # 4.7 10*3/uL (1.4-7.4); Neutrophils % 70.3 % (38.7-73.9); Platelet Count 149 T/CUMM (130-400); Red Blood Count 3.81 MC/CUMM (3.8-5.5); Red Cell Distribution Width 17.3 % (9.3-17.3); White Blood Count 6.7 T/CUMM (4-12)
[2018-03-15] MEDS: LEVOTHYROXINE 175 MCG TABLET PO SCH (06:35)
[2018-03-15 06:38] LABS: Calcium 7.4 MG/DL (8.5-10.1); Osmolality,Calculated 292.7 MOS/KG (273-304); Potassium 3.9 MMOL/L (3.5-5.1)
[2018-03-15] MEDS: ALBUTEROL/IPRATROPIUM 3 ML NEB RESP TX SCH ×5 (07:11→23:27)
[2018-03-15] MEDS ORDERED: FUROSEMIDE 40 MG/4 ML VIAL IV ONE (07:14)
[2018-03-15] MEDS: INSULIN REGULAR 100 UNIT/ML SUBCUT SCH ×4 (08:14→21:05)
[2018-03-15] MEDS: INSULIN NPH 100 UNIT/ML SUBCUT SCH ×2 (09:01→15:51)
[2018-03-15] MEDS: PANTOPRAZOLE 40 MG TABLET PO SCH (09:02)
[2018-03-15] MEDS: CLOPIDOGREL 75 MG TABLET PO SCH (09:02)
[2018-03-15] MEDS: AMIODARONE 200 MG TABLET PO SCH (09:02)
[2018-03-15] MEDS: POLYETHYLENE GLYCOL POWDER 17 GM PACK PO SCH (09:02)
[2018-03-15] MEDS: SODIUM BICARBONATE 650 MG TABLET PO SCH ×3 (09:02→21:24)
[2018-03-15] MEDS: ASCORBIC ACID 500 MG TABLET PO SCH (09:03)
[2018-03-15] MEDS: ASPIRIN CHEW 81 MG TABLET PO SCH (09:03)
[2018-03-15] MEDS: CARVEDILOL 3.125 MG TABLET PO SCH ×2 (09:03→17:21)
[2018-03-15] MEDS: APIXABAN 2.5 MG TABLET PO SCH ×2 (09:03→21:24)
[2018-03-15] MEDS: DOCUSATE/SENNA 50-8.6 MG TABLET PO SCH ×2 (09:03→21:25)
[2018-03-15] MEDS: TAMSULOSIN 0.4 MG CAPSULE PO SCH (09:03)
[2018-03-15] MEDS: cefTRIAXone 1,000 MG in SYRINGE 1 EACH IV SCH (09:08)
[2018-03-16] MEDS: ALBUTEROL/IPRATROPIUM 3 ML NEB RESP TX SCH ×5 (02:58→20:03)
[2018-03-16] MEDS: LEVOTHYROXINE 175 MCG TABLET PO SCH (06:06)
[2018-03-16 06:31] LABS: Basophils % 0.4 % (0.0-0.8); Eosinophils # 0.2 10*3/uL (0.0-0.87); Eosinophils % 2.8 % (0.00-10.9); Hematocrit 42.6 VOL% (42.0-52.0); Hemoglobin 13.7 GM/DL (14.0-18.0); Immature Granulocytes % 0.4 %; Immature Granulocytes Absolute 0.03 #; Lymphocytes # 1.6 10*3/uL (1.4-4.0); Lymphocytes % 23.2 % (21.2-54.2); Mean Corpuscular HGB Conc 32.2 GM/DL (32-36); Mean Corpuscular Hemoglobin 29 PG (27-34); Mean Corpuscular Volume 91.4 FL (87-102); Mean Platelet Volume 11.4 FL (9.6-12.0); Monocytes # 0.8 10*3/uL (0.11-0.8); Monocytes % 11.2 % (1.7-12.7); NRBC # 0.03 10*3/uL; Neutrophils # 4.1 10*3/uL (1.4-7.4); Platelet Count 119 T/CUMM (130-400); Red Blood Count 4.66 MC/CUMM (3.8-5.5); Red Cell Distribution Width 17.8 % (9.3-17.3); White Blood Count 6.7 T/CUMM (4-12)
[2018-03-16 06:42] LABS: Osmolality,Calculated 284.1 MOS/KG (273-304); Potassium 3.6 MMOL/L (3.5-5.1)
[2018-03-16] MEDS: cefTRIAXone 1,000 MG in SYRINGE 1 EACH IV SCH (10:13)
[2018-03-16] MEDS: INSULIN REGULAR 100 UNIT/ML SUBCUT SCH ×4 (11:16→20:03)
[2018-03-16] MEDS: INSULIN NPH 100 UNIT/ML SUBCUT SCH ×2 (11:16→15:42)
[2018-03-16] MEDS: ASPIRIN CHEW 81 MG TABLET PO SCH (11:17)
[2018-03-16] MEDS: CARVEDILOL 3.125 MG TABLET PO SCH ×2 (11:17→19:42)
[2018-03-16] MEDS: TAMSULOSIN 0.4 MG CAPSULE PO SCH (11:18)
[2018-03-16] MEDS: AMIODARONE 200 MG TABLET PO SCH (11:18)
[2018-03-16] MEDS: APIXABAN 2.5 MG TABLET PO SCH ×2 (11:18→20:45)
[2018-03-16] MEDS: CLOPIDOGREL 75 MG TABLET PO SCH (11:19)
[2018-03-16] MEDS: PANTOPRAZOLE 40 MG TABLET PO SCH (11:19)
[2018-03-16] MEDS: SODIUM BICARBONATE 650 MG TABLET PO SCH ×3 (11:19→20:46)
[2018-03-16] MEDS: DOCUSATE/SENNA 50-8.6 MG TABLET PO SCH ×2 (11:19→20:45)
[2018-03-16] MEDS: ASCORBIC ACID 500 MG TABLET PO SCH (11:20)
[2018-03-17] MEDS: ALBUTEROL/IPRATROPIUM 3 ML NEB RESP TX SCH ×7 (00:12→23:46)
[2018-03-17] MEDS ORDERED: LORazepam 2 MG/1 ML VIAL IV ONE ×2 (02:00→22:00)
[2018-03-17 06:08] LABS: Basophils % 0.3 % (0.0-0.8); Eosinophils # 0.2 10*3/uL (0.0-0.87); Eosinophils % 2.6 % (0.00-10.9); Hematocrit 38.4 VOL% (42.0-52.0); Hemoglobin 11.9 GM/DL (14.0-18.0); Immature Granulocytes % 0.6 %; Immature Granulocytes Absolute 0.04 #; Lymphocytes # 1.4 10*3/uL (1.4-4.0); Mean Corpuscular Hemoglobin 30 PG (27-34); Mean Platelet Volume 11.5 FL (9.6-12.0); Monocytes # 0.8 10*3/uL (0.11-0.8); Monocytes % 11.7 % (1.7-12.7); Neutrophils # 4.4 10*3/uL (1.4-7.4); Neutrophils % 63.8 % (38.7-73.9); Platelet Count 132 T/CUMM (130-400); Red Cell Distribution Width 17.8 % (9.3-17.3); White Blood Count 6.9 T/CUMM (4-12)
[2018-03-17 06:19] LABS: Calcium 8.1 MG/DL (8.5-10.1); Potassium 3.9 MMOL/L (3.5-5.1)
[2018-03-17] MEDS: LEVOTHYROXINE 175 MCG TABLET PO SCH (06:30)
[2018-03-17 07:27] LABS: Free T4 (Free Thyroxine) 1.46 NG/DL (0.76-1.46); Thyroid Stimulating Hormone 1.14 uIU/ml (0.358-3.74)
[2018-03-17 07:52] LABS: Albumin 2.3 G/DL (3.4-5.0); Bilirubin,Direct 0.61 MG/DL (0.0-0.20); Bilirubin,Indirect 0.8 MG/DL (0.0-1.0); Bilirubin,Total 1.4 MG/DL (0.2-1.0); Total Protein 5.6 G/DL (6.4-8.3)
[2018-03-17] MEDS: INSULIN REGULAR 100 UNIT/ML SUBCUT SCH ×4 (08:44→20:39)
[2018-03-17] MEDS: cefTRIAXone 1,000 MG in SYRINGE 1 EACH IV SCH (09:22)
[2018-03-17] MEDS: APIXABAN 2.5 MG TABLET PO SCH ×2 (09:43→20:39)
[2018-03-17] MEDS: PANTOPRAZOLE 40 MG TABLET PO SCH (09:43)
[2018-03-17] MEDS: TAMSULOSIN 0.4 MG CAPSULE PO SCH (09:43)
[2018-03-17] MEDS: ASPIRIN CHEW 81 MG TABLET PO SCH (09:43)
[2018-03-17] MEDS: DOCUSATE/SENNA 50-8.6 MG TABLET PO SCH ×2 (09:43→20:39)
[2018-03-17] MEDS: SODIUM BICARBONATE 650 MG TABLET PO SCH ×3 (09:43→20:39)
[2018-03-17] MEDS: CLOPIDOGREL 75 MG TABLET PO SCH (09:44)
[2018-03-17] MEDS: ASCORBIC ACID 500 MG TABLET PO SCH (09:44)
[2018-03-17] MEDS: AMIODARONE 200 MG TABLET PO SCH (09:44)
[2018-03-17] MEDS: CARVEDILOL 3.125 MG TABLET PO SCH ×2 (09:45→17:19)
[2018-03-17] MEDS: guaiFENesin 200 MG/10 ML UDCUP PO PRN (14:46)
[2018-03-18] MEDS: ALBUTEROL/IPRATROPIUM 3 ML NEB RESP TX SCH ×5 (03:16→20:19)
[2018-03-18 05:28] LABS: Basophils % 0.4 % (0.0-0.8); Eosinophils # 0.3 10*3/uL (0.0-0.87); Eosinophils % 2.8 % (0.00-10.9); Hematocrit 37.3 VOL% (42.0-52.0); Hemoglobin 12.1 GM/DL (14.0-18.0); Immature Granulocytes % 0.5 %; Immature Granulocytes Absolute 0.05 #; Lymphocytes % 21.2 % (21.2-54.2); Mean Corpuscular HGB Conc 32.4 GM/DL (32-36); Mean Corpuscular Hemoglobin 30 PG (27-34); Mean Corpuscular Volume 92.1 FL (87-102); Mean Platelet Volume 11.4 FL (9.6-12.0); Monocytes # 0.9 10*3/uL (0.11-0.8); Monocytes % 9.4 % (1.7-12.7); Neutrophils # 6.2 10*3/uL (1.4-7.4); Neutrophils % 65.7 % (38.7-73.9); Platelet Count 156 T/CUMM (130-400); Red Blood Count 4.05 MC/CUMM (3.8-5.5); Red Cell Distribution Width 17.8 % (9.3-17.3); White Blood Count 9.5 T/CUMM (4-12)
[2018-03-18 06:19] LABS: Albumin 2.4 G/DL (3.4-5.0); Bilirubin,Direct 0.62 MG/DL (0.0-0.20); Bilirubin,Total 1.6 MG/DL (0.2-1.0); Calcium 8.5 MG/DL (8.5-10.1); Osmolality,Calculated 303.5 MOS/KG (273-304); Potassium 4.1 MMOL/L (3.5-5.1); Total Protein 6.1 G/DL (6.4-8.3)
[2018-03-18] MEDS: LEVOTHYROXINE 175 MCG TABLET PO SCH (07:03)
[2018-03-18] MEDS: cefTRIAXone 1,000 MG in SYRINGE 1 EACH IV SCH (10:08)
[2018-03-18] MEDS: CLOPIDOGREL 75 MG TABLET PO SCH (10:09)
[2018-03-18] MEDS: DOCUSATE/SENNA 50-8.6 MG TABLET PO SCH ×2 (10:09→22:26)
[2018-03-18] MEDS: TAMSULOSIN 0.4 MG CAPSULE PO SCH (10:09)
[2018-03-18] MEDS: PANTOPRAZOLE 40 MG TABLET PO SCH (10:10)
[2018-03-18] MEDS: SODIUM BICARBONATE 650 MG TABLET PO SCH ×3 (10:10→22:26)
[2018-03-18] MEDS: CARVEDILOL 3.125 MG TABLET PO SCH ×2 (10:10→16:20)
[2018-03-18] MEDS: ASPIRIN CHEW 81 MG TABLET PO SCH (10:10)
[2018-03-18] MEDS: APIXABAN 2.5 MG TABLET PO SCH ×2 (10:10→22:26)
[2018-03-18] MEDS: ASCORBIC ACID 500 MG TABLET PO SCH (10:10)
[2018-03-18] MEDS: POLYETHYLENE GLYCOL POWDER 17 GM PACK PO SCH (10:11)
[2018-03-18] MEDS: AMIODARONE 200 MG TABLET PO SCH (10:11)
[2018-03-18] MEDS: INSULIN REGULAR 100 UNIT/ML SUBCUT SCH ×4 (10:30→22:26)
[2018-03-18] MEDS: SODIUM CHLORIDE 0.45% 1,000 ML IV SCH (16:19)
[2018-03-19] MEDS: ALBUTEROL/IPRATROPIUM 3 ML NEB RESP TX SCH ×7 (02:04→23:59)
[2018-03-19] MEDS: LEVOTHYROXINE 175 MCG TABLET PO SCH (05:56)
[2018-03-19 06:02] LABS: Basophils % 0.2 % (0.0-0.8); Eosinophils # 0.2 10*3/uL (0.0-0.87); Eosinophils % 1.9 % (0.00-10.9); Hematocrit 37.9 VOL% (42.0-52.0); Hemoglobin 12.2 GM/DL (14.0-18.0); Immature Granulocytes % 0.5 %; Immature Granulocytes Absolute 0.04 #; Lymphocytes # 1.7 10*3/uL (1.4-4.0); Lymphocytes % 19.6 % (21.2-54.2); Mean Corpuscular HGB Conc 32.2 GM/DL (32-36); Mean Corpuscular Hemoglobin 29 PG (27-34); Mean Corpuscular Volume 90.9 FL (87-102); Mean Platelet Volume 11.7 FL (9.6-12.0); Monocytes # 0.7 10*3/uL (0.11-0.8); Monocytes % 8.1 % (1.7-12.7); Neutrophils % 69.7 % (38.7-73.9); Platelet Count 174 T/CUMM (130-400); Red Blood Count 4.17 MC/CUMM (3.8-5.5); Red Cell Distribution Width 17.5 % (9.3-17.3); White Blood Count 8.6 T/CUMM (4-12)
[2018-03-19 06:23] LABS: Calcium 8.5 MG/DL (8.5-10.1); Potassium 4.3 MMOL/L (3.5-5.1)
[2018-03-19] MEDS: ASPIRIN CHEW 81 MG TABLET PO SCH (08:58)
[2018-03-19] MEDS: CARVEDILOL 3.125 MG TABLET PO SCH ×2 (08:58→16:03)
[2018-03-19] MEDS: AMIODARONE 200 MG TABLET PO SCH (08:59)
[2018-03-19] MEDS: APIXABAN 2.5 MG TABLET PO SCH ×2 (08:59→21:33)
[2018-03-19] MEDS: FUROSEMIDE 40 MG TABLET PO SCH (08:59)
[2018-03-19] MEDS: CLOPIDOGREL 75 MG TABLET PO SCH (08:59)
[2018-03-19] MEDS: TAMSULOSIN 0.4 MG CAPSULE PO SCH (08:59)
[2018-03-19] MEDS: ASCORBIC ACID 500 MG TABLET PO SCH (09:00)
[2018-03-19] MEDS: SODIUM BICARBONATE 650 MG TABLET PO SCH ×3 (09:00→21:33)
[2018-03-19] MEDS: DOCUSATE/SENNA 50-8.6 MG TABLET PO SCH ×2 (09:00→21:33)
[2018-03-19] MEDS: cefTRIAXone 1,000 MG in SYRINGE 1 EACH IV SCH (09:40)
[2018-03-19] MEDS: PANTOPRAZOLE 40 MG VIAL IV SCH (09:41)
[2018-03-19] MEDS: INSULIN REGULAR 100 UNIT/ML SUBCUT SCH ×4 (10:25→21:33)
[2018-03-19] MEDS: SODIUM CHLORIDE 0.45% 1,000 ML IV SCH (12:38)
[2018-03-19] MEDS ORDERED: FUROSEMIDE 40 MG/4 ML VIAL IV ONE (16:29)
[2018-03-19] MEDS ORDERED: ALBUMIN 25% 12.5 GM in PREMIX 1 EACH IV ONE (17:00)
[2018-03-19] MEDS: guaiFENesin 200 MG/10 ML UDCUP PO PRN (21:34)
[2018-03-20] MEDS ORDERED: ALBUMIN 25% 12.5 GM in PREMIX 1 EACH IV ONE (01:00)
[2018-03-20] MEDS: ALBUTEROL/IPRATROPIUM 3 ML NEB RESP TX SCH ×6 (04:07→23:24)
[2018-03-20] MEDS: LEVOTHYROXINE 175 MCG TABLET PO SCH (06:20)
[2018-03-20] MEDS: SODIUM CHLORIDE 0.45% 1,000 ML IV SCH (09:41)
[2018-03-20] MEDS: DOCUSATE/SENNA 50-8.6 MG TABLET PO SCH ×2 (09:42→21:35)
[2018-03-20] MEDS: CARVEDILOL 3.125 MG TABLET PO SCH ×2 (09:42→17:37)
[2018-03-20] MEDS: CLOPIDOGREL 75 MG TABLET PO SCH (09:42)
[2018-03-20] MEDS: INSULIN REGULAR 100 UNIT/ML SUBCUT SCH ×4 (09:42→22:30)
[2018-03-20] MEDS: ASPIRIN CHEW 81 MG TABLET PO SCH (09:43)
[2018-03-20] MEDS: AMIODARONE 200 MG TABLET PO SCH (09:43)
[2018-03-20] MEDS: FUROSEMIDE 40 MG TABLET PO SCH (09:43)
[2018-03-20] MEDS: PANTOPRAZOLE 40 MG VIAL IV SCH (09:43)
[2018-03-20] MEDS: APIXABAN 2.5 MG TABLET PO SCH ×2 (09:43→21:35)
[2018-03-20] MEDS: TAMSULOSIN 0.4 MG CAPSULE PO SCH (09:43)
[2018-03-20] MEDS: POLYETHYLENE GLYCOL POWDER 17 GM PACK PO SCH (09:43)
[2018-03-20] MEDS: cefTRIAXone 1,000 MG in SYRINGE 1 EACH IV SCH (09:44)
[2018-03-20] MEDS: SODIUM BICARBONATE 650 MG TABLET PO SCH (12:19)
[2018-03-20] MEDS: ASCORBIC ACID 500 MG TABLET PO SCH (12:20)
[2018-03-21] MEDS: ALBUTEROL/IPRATROPIUM 3 ML NEB RESP TX SCH ×3 (02:55→10:56)
[2018-03-21 06:02] LABS: Albumin 2.3 G/DL (3.4-5.0); Bilirubin,Direct 0.52 MG/DL (0.0-0.20); Bilirubin,Indirect 0.5 MG/DL (0.0-1.0); Calcium 8.7 MG/DL (8.5-10.1); Osmolality,Calculated 296.3 MOS/KG (273-304); Potassium 3.6 MMOL/L (3.5-5.1); Total Protein 6.1 G/DL (6.4-8.3)
[2018-03-21] MEDS: LEVOTHYROXINE 175 MCG TABLET PO SCH (07:37)
[2018-03-21] MEDS: INSULIN REGULAR 100 UNIT/ML SUBCUT SCH ×2 (09:11→14:22)
[2018-03-21] MEDS: FUROSEMIDE 40 MG TABLET PO SCH (09:28)
[2018-03-21] MEDS: CLOPIDOGREL 75 MG TABLET PO SCH (09:28)
[2018-03-21] MEDS: ASCORBIC ACID 500 MG TABLET PO SCH (09:28)
[2018-03-21] MEDS: ASPIRIN CHEW 81 MG TABLET PO SCH (09:28)
[2018-03-21] MEDS: AMIODARONE 200 MG TABLET PO SCH (09:28)
[2018-03-21] MEDS: PANTOPRAZOLE 40 MG VIAL IV SCH (09:28)
[2018-03-21] MEDS: CARVEDILOL 3.125 MG TABLET PO SCH (09:28)
[2018-03-21] MEDS: APIXABAN 2.5 MG TABLET PO SCH (09:28)
[2018-03-21] MEDS: TAMSULOSIN 0.4 MG CAPSULE PO SCH (09:28)
[2018-03-21] MEDS: cefTRIAXone 1,000 MG in SYRINGE 1 EACH IV SCH (09:29)
[2018-03-21] MEDS: DOCUSATE/SENNA 50-8.6 MG TABLET PO SCH (09:30)
[2018-03-21 12:19] VITALS: BP 132/84
== END 2018-03-21 15:55 | DRG 871 ==
LOC: EDBD → EDUNIT# → N.EDINP 10:19 → N.ED 10:19 → SUATTDRO 14:53 → N.2W 16:08 → N.2E 17:29 → SUATTDRO 03-07 12:49 → N.CC 03-08 18:47 → N.TELEN 03-13 15:17
PROVIDERS: ADMIT Internal Medicine; ATTEND Internal Medicine Cardiovascular Disease

== ENCOUNTER 2018-03-24 07:10 | Inpatient (IN) ==
[2018-03-24] MEDS ORDERED: SODIUM CHLORIDE 0.9% 1,000 ML IV STA (07:54)
[2018-03-24 09:41] LABS: Basophils # 0.1 10*3/uL (0.0-0.2); Basophils % 0.5 % (0.0-0.8); Eosinophils # 0.8 10*3/uL (0.0-0.87); Eosinophils % 6.9 % (0.00-10.9); Hematocrit 38.9 VOL% (42.0-52.0); Hemoglobin 12.2 GM/DL (14.0-18.0); Immature Granulocytes % 0.5 %; Immature Granulocytes Absolute 0.05 #; Lymphocytes # 2.4 10*3/uL (1.4-4.0); Lymphocytes % 22.3 % (21.2-54.2); Mean Corpuscular HGB Conc 31.4 GM/DL (32-36); Mean Corpuscular Hemoglobin 30 PG (27-34); Mean Corpuscular Volume 95.3 FL (87-102); Neutrophils # 6.6 10*3/uL (1.4-7.4); Neutrophils % 60.8 % (38.7-73.9); Platelet Count 183 T/CUMM (130-400); Red Blood Count 4.08 MC/CUMM (3.8-5.5); Red Cell Distribution Width 18.6 % (9.3-17.3); White Blood Count 10.9 T/CUMM (4-12)
[2018-03-24 10:11] LABS: Apearance,Urine CLEAR (Clear); Bilirubin,Urine Negative (Negative); Blood, Urine Moderate mg/dL (Negative); Glucose,Urine (UA) Negative (Negative); Hyaline Casts,Urine 4 /LPF (0-3); Ketones,Urine Negative (Negative); Mucus,Urine Occasional /LPF (Occasional); Nitrite,Urine Negative (Negative); Protein,Urine Negative; RBC,Urine 21 /HPF (0-4); Urine Color Yellow (Yellow); Urine Specific Gravity 1.008 (1.001-1.035); Urine Urobilinogen < 2.0 EU/DL (0.2-1.0); WBC,Urine <1 /HPF (0-6)
[2018-03-24 10:16] LABS: Albumin 2.3 G/DL (3.4-5.0); Calcium 7.9 MG/DL (8.5-10.1); Osmolality,Calculated 294.8 MOS/KG (273-304); Potassium 3.5 MMOL/L (3.5-5.1)
[2018-03-24] MEDS ORDERED: BISACODYL 5 MG TABLET PO PRN (11:06)
[2018-03-24] MEDS ORDERED: ONDANSETRON 4 MG/2 ML VIAL IV PRN (11:06)
[2018-03-24] MEDS ORDERED: DEXTROSE 50% 25 GM/50 ML VIAL IV PRN (11:06)
[2018-03-24] MEDS ORDERED: GLUCAGON 1 MG VIAL IM PRN (11:06)
[2018-03-24] MEDS ORDERED: SKIN HEALING OINT (AQUAPHOR) 50 GM TUBE TOP PRN (11:12)
[2018-03-24] MEDS ORDERED: DEXTROSE 50% 25 GM/50 ML SYRINGE IV PRN (13:00)
[2018-03-24] MEDS: POTASSIUM CHLORIDE 20 MEQ TABLET PO SCH ×3 (13:03→21:44)
[2018-03-24] MEDS: FUROSEMIDE 40 MG/4 ML VIAL IV SCH ×3 (13:03→23:26)
[2018-03-24] MEDS: INSULIN REGULAR 100 UNIT/ML SUBCUT SCH ×3 (13:04→21:47)
[2018-03-24] MEDS: CARVEDILOL 3.125 MG TABLET PO SCH (17:11)
[2018-03-24] MEDS: hydrALAZINE 25 MG TABLET PO SCH ×2 (17:11→23:25)
[2018-03-24] MEDS: APIXABAN 2.5 MG TABLET PO SCH (21:44)
[2018-03-24] MEDS ORDERED: POTASSIUM CHLORIDE 20 MEQ TABLET PO SCH (22:00)
[2018-03-25] MEDS: hydrALAZINE 25 MG TABLET PO SCH ×3 (06:46→22:13)
[2018-03-25] MEDS: LEVOTHYROXINE 175 MCG TABLET PO SCH (06:46)
[2018-03-25] MEDS: CLOPIDOGREL 75 MG TABLET PO SCH (08:36)
[2018-03-25] MEDS: APIXABAN 2.5 MG TABLET PO SCH ×2 (08:36→22:10)
[2018-03-25] MEDS: POLYETHYLENE GLYCOL POWDER 17 GM PACK PO SCH (08:36)
[2018-03-25] MEDS: ASPIRIN CHEW 81 MG TABLET PO SCH (08:36)
[2018-03-25] MEDS: PANTOPRAZOLE 40 MG TABLET PO SCH (08:36)
[2018-03-25] MEDS: CARVEDILOL 3.125 MG TABLET PO SCH ×2 (08:36→18:25)
[2018-03-25] MEDS: TAMSULOSIN 0.4 MG CAPSULE PO SCH (08:36)
[2018-03-25] MEDS: AMIODARONE 200 MG TABLET PO SCH (08:36)
[2018-03-25 09:32] LABS: Basophils % 0.3 % (0.0-0.8); Eosinophils # 0.2 10*3/uL (0.0-0.87); Eosinophils % 1.9 % (0.00-10.9); Hematocrit 36.4 VOL% (42.0-52.0); Hemoglobin 11.5 GM/DL (14.0-18.0); Immature Granulocytes % 0.5 %; Immature Granulocytes Absolute 0.06 #; Lymphocytes # 1.7 10*3/uL (1.4-4.0); Lymphocytes % 14.3 % (21.2-54.2); Mean Corpuscular HGB Conc 31.6 GM/DL (32-36); Mean Corpuscular Hemoglobin 29 PG (27-34); Mean Corpuscular Volume 93.1 FL (87-102); Monocytes # 0.9 10*3/uL (0.11-0.8); Monocytes % 7.3 % (1.7-12.7); NRBC # 0.02 10*3/uL; Neutrophils # 9.1 10*3/uL (1.4-7.4); Neutrophils % 75.7 % (38.7-73.9); Platelet Count 197 T/CUMM (130-400); Red Blood Count 3.91 MC/CUMM (3.8-5.5); Red Cell Distribution Width 18.5 % (9.3-17.3)
[2018-03-25 10:06] LABS: Calcium 8.5 MG/DL (8.5-10.1); Osmolality,Calculated 292.3 MOS/KG (273-304)
[2018-03-25] MEDS: INSULIN REGULAR 100 UNIT/ML SUBCUT SCH ×4 (10:56→22:11)
[2018-03-25] MEDS: ZINC OXIDE PASTE 113 GM TUBE TOP SCH ×2 (16:52→22:10)
[2018-03-25] MEDS: FUROSEMIDE 40 MG/4 ML VIAL IV SCH (16:52)
[2018-03-26 05:45] LABS: Calcium 8.4 MG/DL (8.5-10.1); Osmolality,Calculated 298.8 MOS/KG (273-304); Potassium 4.1 MMOL/L (3.5-5.1); Thyroid Stimulating Hormone 4.77 uIU/ml (0.358-3.74)
[2018-03-26] MEDS: LEVOTHYROXINE 175 MCG TABLET PO SCH (06:15)
[2018-03-26] MEDS: ASPIRIN CHEW 81 MG TABLET PO SCH (08:52)
[2018-03-26] MEDS: INSULIN REGULAR 100 UNIT/ML SUBCUT SCH ×4 (08:52→22:20)
[2018-03-26] MEDS: AMIODARONE 200 MG TABLET PO SCH (08:53)
[2018-03-26] MEDS: hydrALAZINE 25 MG TABLET PO SCH ×2 (08:53→15:20)
[2018-03-26] MEDS: PANTOPRAZOLE 40 MG TABLET PO SCH (08:53)
[2018-03-26] MEDS: FUROSEMIDE 40 MG/4 ML VIAL IV SCH ×2 (08:53→15:20)
[2018-03-26] MEDS: APIXABAN 2.5 MG TABLET PO SCH ×2 (08:53→22:16)
[2018-03-26] MEDS: CLOPIDOGREL 75 MG TABLET PO SCH (08:53)
[2018-03-26] MEDS: TAMSULOSIN 0.4 MG CAPSULE PO SCH (08:53)
[2018-03-26] MEDS: ZINC OXIDE PASTE 113 GM TUBE TOP SCH ×2 (08:53→22:16)
[2018-03-26] MEDS: CARVEDILOL 3.125 MG TABLET PO SCH ×2 (08:53→18:12)
[2018-03-27] MEDS: hydrALAZINE 25 MG TABLET PO SCH ×3 (00:27→14:57)
[2018-03-27 05:25] LABS: Basophils % 0.3 % (0.0-0.8); Eosinophils # 0.3 10*3/uL (0.0-0.87); Eosinophils % 2.8 % (0.00-10.9); Hemoglobin 12.3 GM/DL (14.0-18.0); Immature Granulocytes % 0.4 %; Immature Granulocytes Absolute 0.04 #; Lymphocytes # 1.9 10*3/uL (1.4-4.0); Mean Corpuscular HGB Conc 31.5 GM/DL (32-36); Mean Corpuscular Hemoglobin 30 PG (27-34); Mean Corpuscular Volume 93.8 FL (87-102); Mean Platelet Volume 11.2 FL (9.6-12.0); Monocytes # 0.8 10*3/uL (0.11-0.8); Monocytes % 8.4 % (1.7-12.7); Neutrophils # 6.9 10*3/uL (1.4-7.4); Neutrophils % 69.1 % (38.7-73.9); Platelet Count 190 T/CUMM (130-400); Red Blood Count 4.16 MC/CUMM (3.8-5.5); Red Cell Distribution Width 19.3 % (9.3-17.3)
[2018-03-27 05:48] LABS: Calcium 8.6 MG/DL (8.5-10.1); Potassium 3.6 MMOL/L (3.5-5.1)
[2018-03-27] MEDS: LEVOTHYROXINE 175 MCG TABLET PO SCH (06:13)
[2018-03-27] MEDS: CARVEDILOL 3.125 MG TABLET PO SCH ×2 (10:26→17:57)
[2018-03-27] MEDS: ZINC OXIDE PASTE 113 GM TUBE TOP SCH ×2 (10:27→21:49)
[2018-03-27] MEDS: AMIODARONE 200 MG TABLET PO SCH (10:27)
[2018-03-27] MEDS: APIXABAN 2.5 MG TABLET PO SCH ×2 (10:27→21:46)
[2018-03-27] MEDS: TAMSULOSIN 0.4 MG CAPSULE PO SCH (10:27)
[2018-03-27] MEDS: ASPIRIN CHEW 81 MG TABLET PO SCH (10:27)
[2018-03-27] MEDS: POLYETHYLENE GLYCOL POWDER 17 GM PACK PO SCH (10:28)
[2018-03-27] MEDS: PANTOPRAZOLE 40 MG TABLET PO SCH (10:28)
[2018-03-27] MEDS: CLOPIDOGREL 75 MG TABLET PO SCH (10:28)
[2018-03-27] MEDS: INSULIN REGULAR 100 UNIT/ML SUBCUT SCH ×4 (10:29→21:45)
[2018-03-27] MEDS: FUROSEMIDE 40 MG/4 ML VIAL IV SCH ×2 (11:47→15:06)
[2018-03-27] MEDS ORDERED: MAGNESIUM SULF RIDER 4 GM in PREMIX 1 EACH IV PRN (15:25)
[2018-03-27] MEDS: MAGNESIUM SULF RIDER 2 GM in PREMIX 1 EACH IV PRN (15:49)
[2018-03-28] MEDS: hydrALAZINE 25 MG TABLET PO SCH ×4 (01:17→15:51)
[2018-03-28 04:08] LABS: Basophils % 0.2 % (0.0-0.8); Eosinophils # 0.6 10*3/uL (0.0-0.87); Hematocrit 32.6 VOL% (42.0-52.0); Hemoglobin 10.1 GM/DL (14.0-18.0); Immature Granulocytes % 0.4 %; Immature Granulocytes Absolute 0.03 #; Lymphocytes # 1.7 10*3/uL (1.4-4.0); Lymphocytes % 20.5 % (21.2-54.2); Mean Corpuscular Hemoglobin 29 PG (27-34); Mean Corpuscular Volume 94.5 FL (87-102); Mean Platelet Volume 11.1 FL (9.6-12.0); Monocytes # 0.7 10*3/uL (0.11-0.8); Monocytes % 8.2 % (1.7-12.7); Neutrophils # 5.2 10*3/uL (1.4-7.4); Neutrophils % 63.7 % (38.7-73.9); Platelet Count 160 T/CUMM (130-400); Red Blood Count 3.45 MC/CUMM (3.8-5.5); Red Cell Distribution Width 18.7 % (9.3-17.3); White Blood Count 8.2 T/CUMM (4-12)
[2018-03-28 04:24] LABS: Calcium 7.7 MG/DL (8.5-10.1); Potassium 3.3 MMOL/L (3.5-5.1)
[2018-03-28] MEDS: LEVOTHYROXINE 175 MCG TABLET PO SCH (07:05)
[2018-03-28] MEDS: APIXABAN 2.5 MG TABLET PO SCH ×2 (08:51→21:29)
[2018-03-28] MEDS: TAMSULOSIN 0.4 MG CAPSULE PO SCH (08:51)
[2018-03-28] MEDS: CLOPIDOGREL 75 MG TABLET PO SCH (08:51)
[2018-03-28] MEDS: AMIODARONE 200 MG TABLET PO SCH (08:51)
[2018-03-28] MEDS: CARVEDILOL 3.125 MG TABLET PO SCH ×2 (08:52→16:12)
[2018-03-28] MEDS: ASPIRIN CHEW 81 MG TABLET PO SCH (08:52)
[2018-03-28] MEDS: PANTOPRAZOLE 40 MG TABLET PO SCH (08:52)
[2018-03-28] MEDS: INSULIN REGULAR 100 UNIT/ML SUBCUT SCH ×4 (08:54→21:30)
[2018-03-28] MEDS: FUROSEMIDE 40 MG/4 ML VIAL IV SCH ×2 (08:54→16:12)
[2018-03-28] MEDS: ZINC OXIDE PASTE 113 GM TUBE TOP SCH ×2 (08:58→21:30)
[2018-03-29 06:02] LABS: Basophils % 0.3 % (0.0-0.8); Eosinophils # 0.5 10*3/uL (0.0-0.87); Eosinophils % 6.9 % (0.00-10.9); Hematocrit 32.8 VOL% (42.0-52.0); Hemoglobin 10.3 GM/DL (14.0-18.0); Immature Granulocytes % 0.3 %; Immature Granulocytes Absolute 0.02 #; Lymphocytes # 1.9 10*3/uL (1.4-4.0); Lymphocytes % 25.5 % (21.2-54.2); Mean Corpuscular HGB Conc 31.4 GM/DL (32-36); Mean Corpuscular Hemoglobin 30 PG (27-34); Mean Corpuscular Volume 94.3 FL (87-102); Mean Platelet Volume 11.3 FL (9.6-12.0); Monocytes # 0.6 10*3/uL (0.11-0.8); Monocytes % 8.3 % (1.7-12.7); Neutrophils # 4.5 10*3/uL (1.4-7.4); Neutrophils % 58.7 % (38.7-73.9); Platelet Count 156 T/CUMM (130-400); Red Blood Count 3.48 MC/CUMM (3.8-5.5); Red Cell Distribution Width 18.6 % (9.3-17.3); White Blood Count 7.6 T/CUMM (4-12)
[2018-03-29] MEDS: LEVOTHYROXINE 175 MCG TABLET PO SCH (06:25)
[2018-03-29 06:26] LABS: Calcium 8.1 MG/DL (8.5-10.1); Osmolality,Calculated 287.4 MOS/KG (273-304); Osmolality,Calculated 291.1 MOS/KG (273-304); Potassium 3.1 MMOL/L (3.5-5.1)
[2018-03-29] MEDS: hydrALAZINE 25 MG TABLET PO SCH ×2 (06:32→09:14)
[2018-03-29] MEDS: AMIODARONE 200 MG TABLET PO SCH (09:13)
[2018-03-29] MEDS: PANTOPRAZOLE 40 MG TABLET PO SCH (09:13)
[2018-03-29] MEDS: FUROSEMIDE 40 MG/4 ML VIAL IV SCH (09:13)
[2018-03-29] MEDS: ASPIRIN CHEW 81 MG TABLET PO SCH (09:13)
[2018-03-29] MEDS: CLOPIDOGREL 75 MG TABLET PO SCH (09:13)
[2018-03-29] MEDS: ZINC OXIDE PASTE 113 GM TUBE TOP SCH (09:14)
[2018-03-29] MEDS: APIXABAN 2.5 MG TABLET PO SCH (09:14)
[2018-03-29] MEDS: CARVEDILOL 3.125 MG TABLET PO SCH (09:14)
[2018-03-29] MEDS: TAMSULOSIN 0.4 MG CAPSULE PO SCH (09:14)
[2018-03-29] MEDS: POLYETHYLENE GLYCOL POWDER 17 GM PACK PO SCH (09:14)
[2018-03-29] MEDS: INSULIN REGULAR 100 UNIT/ML SUBCUT SCH ×2 (09:15→12:00)
[2018-03-29] MEDS: MAGNESIUM SULF RIDER 2 GM in PREMIX 1 EACH IV PRN (11:27)
[2018-03-29] MEDS: POTASSIUM CHLORIDE 20 MEQ TABLET PO PRN ×2 (11:27→13:18)
[2018-03-29 12:15] VITALS: BP 119/65
== END 2018-03-29 14:25 | disposition hospice, inpatient (51) | DRG 291 ==
LOC: EDBD → EDUNIT# → N.ED 07:10 → SUATTDRO 11:06 → N.EDINP 11:06 → N.TELES 11:37
PROVIDERS: ADMIT Internal Medicine Cardiovascular Disease; ATTEND Internal Medicine